=== PATIENT | male | born 1955 | race Caucasian/White ===

== ENCOUNTER 2017-01-22 18:01 | Emergency (ER) | payer OTHER ==
[~2017-01-22] VITALS: Ht 175.3 cm; Wt 90.0 kg
[~2017-01-22 18:01] MED LIST: ACYC400T2 PO; ALLO100T PO; ASPI81TA3 PO; CARV3.1260 PO; CLOP75TA27 PO; CYCL-319 PO; ENAL20TA PO; GABA400C14 PO; GLIP5TAB13 PO; HYDR-3498 PO; LORA5SOL74 PO; METF1000 PO; NIT4 SL; NYST15CR28 TOP; SERT25TA83 PO
[2017-01-22 18:03] VITALS: Ht 175.3 cm; Wt 90.0 kg
[2017-01-22] MEDS ORDERED: LORA10TA3 PO (18:25)
[2017-01-22] MEDS ORDERED: IBUP800T25 PO (18:26)
[2017-01-22] MEDS ORDERED: LANT3I SC (18:27)
[2017-01-22] MEDS ORDERED: LISI10TA2 PO (18:27)
[2017-01-22] MEDS ORDERED: SIMV20TA PO (18:28)
[2017-01-22] MEDS ORDERED: OMEP20CA16 PO (18:28)
[2017-01-22] MEDS ORDERED: FLUT16SP17 NASAL (18:29)
[2017-01-22] MEDS ORDERED: HYDROmorphONE 2 MG/ML SYG IV ONE (18:30)
[2017-01-22] MEDS ORDERED: ONDANSETRON 4 MG INJ IV ONE (18:30)
[2017-01-22] MEDS ORDERED: SILVER SULFADIAZINE 1% 400 GM CR TOP ONE (18:30)
--- NOTE | 2017-01-22 18:59 | RADRPT ---
PROCEDURE: XR Shoulder. CLINICAL INDICATION: Right shoulder pain. TECHNIQUE: 2 views of the right shoulder. COMPARISON: None available FINDINGS: There is no acute fracture or dislocation. The joint spaces are preserved. The coracoclavicular in terval is normal. The visualized right lung is clear. IMPRESSION: 1. No acute fracture or dislocation of the right shoulder. RPTAT: HTAR .Terrence Brown MD, MD Date Time Electronically viewed and signed by .Terrence Brown MD, on 01/22/2017 18:58 .R/
[2017-01-22] MEDS ORDERED: SILVER SULFADIAZINE 1% 25 GM CR TOP SCH (19:30)
[2017-01-22] MEDS ORDERED: HYDROmorphONE 1 MG/ML SYG IV STA (20:41)
[2017-01-22] MEDS ORDERED: ONDANSETRON 4 MG INJ IV STA (20:41)
[2017-01-22] MEDS ORDERED: NICARDipine HCL 30 MG CAPSULE PO ONE (22:00)
[2017-01-22] MEDS ORDERED: hydrALAzine 20 MG INJ IV ONE (22:00)
[2017-01-22] MEDS ORDERED: HYDR-902 PO (22:32)
[2017-01-22] MEDS ORDERED: LISI30TA47 PO (22:32)
[2017-01-22] MEDS ORDERED: SLSL1C50 TOP (22:32)
[2017-01-22] MEDS ORDERED: CEPH-443 PO (22:40)
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
[2017-01-22 23:25] VITALS: BP 174/106; PULSE 89; RESP 17
[2017-01-22] MEDS ORDERED: LIDOCAINE/MYLANTA 40 ML BTL PO ONE (23:30)
== END 2017-01-22 23:25 | disposition home or self-care (01) ==
LOC: E/R 18:01
DX: T20.26XA Burn of second degree of forehead and cheek, initial encounter (principal); T20.24XA Burn of second degree of nose (septum), initial encounter; T23.262A Burn of second degree of back of left hand, initial encounter; T22.212A Burn of second degree of left forearm, initial encounter; T22.211A Burn of second degree of right forearm, initial encounter; I10 Essential (primary) hypertension; X08.8XXA Exposure to other specified smoke, fire and flames, initial encounter; Y92.9 Unspecified place or not applicable; Z79.01 Long term (current) use of anticoagulants; Z79.82 Long term (current) use of aspirin; Z79.84 Long term (current) use of oral hypoglycemic drugs; Z79.4 Long term (current) use of insulin
CPT/HCPCS: 16020; 73030; 96374; 96375; 96376; J0360; J1170; J2405; Z7502; Z7610

== ENCOUNTER 2017-04-25 07:49 | Inpatient (IN) | END 2017-04-29 12:28 | disposition home or self-care (01) | DRG 246 | DX: I21.4 Non-ST elevation (NSTEMI) myocardial infarction (principal); I50.23 Acute on chronic systolic (congestive) heart failure; I11.0 Hypertensive heart disease with heart failure; E11.9 Type 2 diabetes mellitus without complications; E78.5 Hyperlipidemia, unspecified; I25.119 Atherosclerotic heart disease of native coronary artery with unspecified angina pectoris; J44.9 Chronic obstructive pulmonary disease, unspecified; K21.9 Gastro-esophageal reflux disease without esophagitis; Z95.5 Presence of coronary angioplasty implant and graft; Z87.891 Personal history of nicotine dependence; Z79.4 Long term (current) use of insulin ==

== ENCOUNTER 2017-08-28 18:01 | Inpatient (IN) | payer OTHER ==
[~2017-08-28] VITALS: Ht 177.8 cm; Wt 94.0 kg
[~2017-08-28 18:01] MED LIST changes: -ACYC400T2 PO; +ASPI325T4 PO; -ASPI81TA3 PO; -CARV3.1260 PO; -ENAL20TA PO; +FLUT16SP17 NASAL; +FURO20TA3 PO; -HYDR-3498 PO; +LANT3I SC; +LISI20TA11 PO; +LORA10TA3 PO; -LORA5SOL74 PO; +METO-448 PO; -NIT4 SL; +NITR0.4T39 SL; -NYST15CR28 TOP; +OMEP20CA16 PO; +SIMV20TA PO
[2017-08-28] MEDS ORDERED: ASPIRIN 325 MG TAB PO STA (21:40)
[2017-08-28 22:28] LABS: BASOPHILS % 0.7 % (0.0-2.0); EOSINOPHILS # 0.3 10^3/ul (0.0-0.5); HEMATOCRIT 37.2 % (42.0-52.0); HEMOGLOBIN 12.7 g/dl (14.0-18.0); LYMPHOCYTES # 1.5 10^3/ul (0.8-2.9); LYMPHOCYTES % 33.3 % (15.0-51.0); MEAN CORPUSCULAR HEMOGLOBIN 29.5 pg (29.0-33.0); MEAN CORPUSCULAR HGB CONC 34.1 g/dl (32.0-37.0); MEAN CORPUSCULAR VOLUME 86.5 fl (82.0-101.0); MEAN PLATELET VOLUME 9.9 fl (7.4-10.4); MONOCYTE # 0.7 10^3/ul (0.3-0.9); MONOCYTES % 15.3 % (0.0-11.0); NEUTROPHILS % 43.5 % (39.0-77.0); PLATELET COUNT 284 10^3/UL (140-415); WHITE BLOOD COUNT 4.6 10^3/ul (4.8-10.8)
[2017-08-28 22:44] LABS: INR 0.97
[2017-08-28 22:45] LABS: PARTIAL THROMBOPLASTIN TIME 31.8 Sec (25.0-35.0)
[2017-08-28 22:47] LABS: ALBUMIN 3.8 g/dl (3.3-4.9); ALBUMIN/GLOBULIN RATIO 1.18; BILIRUBIN,INDIRECT 0.2 mg/dl (0-1.1); BILIRUBIN,TOTAL 0.2 mg/dl (0.2-1.3); CALCIUM 9.5 mg/dl (8.4-10.2); CREATININE 1.36 mg/dl (0.61-1.24); POTASSIUM 3.9 mmol/L (3.5-5.1)
--- NOTE | 2017-08-28 22:48 | RADRPT ---
PROCEDURE: XR Chest. CLINICAL INDICATION: Chest pain. TECHNIQUE: Single frontal chest x-ray. COMPARISON: 04/25/2017 FINDINGS: Heart is enlarged.. There is mild pulmonary vascular congestion.. No focal infiltrate is seen. The re is a probable small left pleural effusion.. There is no pneumothorax. The osseous structures ar e unremarkable. IMPRESSION: Cardiomegaly. Mild pulmonary vascular congestion. Small left pleural effusion. RPTAT: HMVK .Cruz South MD, MD Date Time Electronically viewed and signed by .Cruz South MD, on 08/28/2017 22:47 .K/
[2017-08-28] MEDS ORDERED: ACYC400T2 PO (22:55)
[2017-08-28] MEDS ORDERED: ASPI-664 PO (22:55)
[2017-08-28] MEDS ORDERED: CARV3.1260 PO (22:57)
[2017-08-28] MEDS ORDERED: ENAL10TA PO (22:57)
[2017-08-28] MEDS ORDERED: CYCL-319 PO (22:58)
[2017-08-28] MEDS ORDERED: IBUP-1542 PO (22:59)
[2017-08-28] MEDS ORDERED: GABA-528 PO (22:59)
[2017-08-28 23:01] LABS: TROPONIN-I 0.074 ng/ml (0.00-0.12)
[2017-08-28 23:02] LABS: CK-MB 3.34 ng/ml (0.0-2.4)
--- NOTE | 2017-08-28 23:49 | ERD ---
ER Documentation Chief Complaint Chief Complaint chest pain and sob x 4 days HPI This is a 62-year-old male with chest pain shortness breath for the past 4 days. The chest pain is mild to moderate intensity, substernal with no exacerbating or alleviating factors. Shortness breath accompanied a day later. No nausea no vomiting no fevers no chills. No diaphoresis. Does complain of orthopnea and dyspnea on exertion. ROS All systems reviewed and are negative except as per history of present illness. Medications Home Meds Active Scripts Clopidogrel Bisulfate (Clopidogrel) 75 Mg Tab, 75 MG PO DAILY for 28 Days, TAB Prov:VENKATA FRAUSTO MD 10/25/15 Reported Medications Ibuprofen* (Ibuprofen*) 600 Mg Tablet, 600 MG PO BID, TAB 08/28/17 Gabapentin* (Gabapentin*) 800 Mg Tablet, 800 MG PO TID, #90 TAB 08/28/17 Enalapril Maleate* (Enalapril Maleate*) 10 Mg Tablet, 10 MG PO DAILY, TAB 08/28/17 Carvedilol* (Carvedilol*) 3.125 Mg Tablet, 3.125 MG PO BID, #60 TAB 08/28/17 Aspirin* (Aspirin* EC) 81 Mg Tablet.dr, 81 MG PO DAILY, TAB 08/28/17 Acyclovir* (Acyclovir*) 400 Mg Tablet, 400 MG PO DAILY, TAB 08/28/17 Cyclobenzaprine Hcl* (Cyclobenzaprine Hcl*) 10 Mg Tablet, 10 MG PO BID Y for MUSCLE SPASMS, #60 TAB 04/25/17 Simvastatin* (Zocor*) 20 Mg Tablet, 20 MG PO QHS, #30 TAB 01/22/17 Loratadine* (Loratadine*) 10 Mg Tablet, 10 MG PO DAILY, #30 TAB 01/22/17 Nitroglycerin* (Nitrostat*) 0.4 Mg Tab.subl, 0.4 MG SL Q5MIN Y for CHEST PAIN, BOTTLE 10/23/15 Metformin Hcl* (Metformin Hcl*) 1,000 Mg Tablet, 1000 MG PO BID, #60 TAB 10/23/15 Glipizide* (Glipizide*) 5 Mg Tablet, 5 MG PO DAILY, TAB 10/23/15 Allopurinol* (Allopurinol*) 100 Mg Tablet, 100 MG PO DAILY, TAB 10/23/15 Discontinued Reported Medications Cyclobenzaprine Hcl* (Cyclobenzaprine Hcl*) 10 Mg Tablet, 10 MG PO TID, #90 TAB 08/28/17 Lisinopril* (Lisinopril*) 20 Mg Tablet, 20 MG PO DAILY, #30 TAB 04/25/17 Fluticasone Propionate* (Fluticasone Propionate* Nasal) 50 Mcg/[place] - 16 Gm [place].susp, 1 SPRAY NASAL BID, #1 BOTTLE TO EACH NOSTRIL 01/22/17 Omeprazole* (Omeprazole*) 20 Mg Capsule.dr, 20 MG PO DAILY, #30 CAP 01/22/17 Insulin Glargine* (Lantus*) 100 Unit/Ml Soln, 20 UNIT SC DAILY, #1 VIAL 01/22/17 Sertraline Hcl* (Sertraline Hcl*) 25 Mg Tablet, 25 MG PO DAILY, #30 TAB 10/23/15 Gabapentin* (Gabapentin*) 400 Mg Capsule, 800 MG PO TID, #180 CAP 10/23/15 Discontinued Scripts Furosemide* (Furosemide*) 20 Mg Tablet, 20 MG PO DAILY for 14 Days, #28 TAB Prov:CONSTANTINO WEST MD 04/29/17 Aspirin* (Aspirin*) 325 Mg Tablet, 325 MG PO DAILY for 30 Days, #30 TAB Prov:CONSTANTINO WEST MD 04/29/17 Metoprolol Tartrate* (Lopressor*) 25 Mg Tab, 25 MG PO BID for 30 Days, #60 TAB Prov:CONSTANTINO WEST MD 04/29/17 Allergies Allergies: Coded Allergies: No Known Allergy (Unverified , 08/28/17) PMhx/Soc History of Surgery: Yes (Stent Placement 2015) Anesthesia Reaction: No Hx Neurological Disorder: No Hx Respiratory Disorders: No Hx Cardiac Disorders: Yes (HTN, Stent Placement 2015) Hx Psychiatric Problems: No Hx Miscellaneous Medical Probl: No Hx Alcohol Use: No Hx Substance Use: No Hx Tobacco Use: No Smoking Status: Never smoker Physical Exam Vitals Vital Signs Date Time Temp Pulse Resp B/P Pulse Ox O2 Delivery O2 Flow Rate FiO2 08/28/17 18:06 97.5 80 18 147/86 97 Physical Exam Const: [] Head: Atraumatic Eyes: Normal Conjunctiva ENT: Normal External Ears, Nose and Mouth. Neck: Full range of motion..~ No meningismus. Resp: Clear to auscultation bilaterally Cardio: Regular rate and rhythm, no murmurs Abd: Soft, non tender, non distended. Normal bowel sounds Skin: No petechiae or rashes Back: No midline or flank tenderness Ext: No cyanosis, or edema Neur: Awake and alert Psych: Normal Mood and Affect Result Diagram: 08/28/17215008/28/172150 Results 24 hrs Laboratory Tests Test 08/28/17 21:51 White Blood Count 4.610^3/ul Red Blood Count 4.3010^6/ul Hemoglobin 12.7g/dl Hematocrit 37.2% Mean Corpuscular Volume 86.5fl Mean Corpuscular Hemoglobin 29.5pg Mean Corpuscular Hemoglobin Concent 34.1g/dl Red Cell Distribution Width 14.0% Platelet Count 46892^3/UL Mean Platelet Volume 9.9fl Neutrophils % 43.5% Lymphocytes % 33.3% Monocytes % 15.3% Eosinophils % 7.0% Basophils % 0.7% Nucleated Red Blood Cells % 0.0/100WBC Neutrophils # 2.010^3/ul Lymphocytes # 1.510^3/ul Monocytes # 0.710^3/ul Eosinophils # 0.310^3/ul Basophils # 0.010^3/ul Nucleated Red Blood Cells # 0.010^3/ul Prothrombin Time 13.0Sec Prothrombin Time Ratio 1.0 INR International Normalized Ratio 0.97 Activated Partial Thromboplast Time 31.8Sec Sodium Level 137mmol/L Potassium Level 3.9mmol/L Chloride Level 101mmol/L Carbon Dioxide Level 27mmol/L Anion Gap 13 Blood Urea Nitrogen 20mg/dl Creatinine 1.36mg/dl Glucose Level 111mg/dl Calcium Level 9.5mg/dl Total Bilirubin 0.2mg/dl Direct Bilirubin 0.00mg/dl Indirect Bilirubin 0.2mg/dl Aspartate Amino Transf (AST/SGOT) 25IU/L Alanine Aminotransferase (ALT/SGPT) 43IU/L Alkaline Phosphatase 79IU/L Creatine Kinase 199IU/L Creatine Kinase Index 1.7 Creatinine Kinase MB (Mass) 3.34ng/ml Troponin I 0.074ng/ml B-Type Natriuretic Peptide 956PG/ML Total Protein 7.0g/dl Albumin 3.8g/dl Globulin 3.20g/dl Albumin/Globulin Ratio 1.18 Current Medications Medications (Trade) Dose Ordered Sig/Kishore Route PRN Reason Start Time Stop Time Status Last Admin Dose Admin Aspirin (Aspirin) 325 mg ONCE STAT PO 08/28/17 21:40 08/28/17 21:42 DC 08/28/17 22:08 Procedures/MDM EKG: Rate/Rhythm: [Normal Sinus Rhythm] QRS, ST, T-waves: [No changes consistent w/ acute ischemia] Impression: [No evidence of ischemia or arrhythmia] Chest X-ray 1V Interpreted by me: Soft Tissue: No acute abnormalities Bones: No acute abnormalities Mediastinum/Cardiac Silhouette/Lungs: Mild pulmonary vascular congestion. Impression: CHF Patient's heart failure symptoms is concerning for acute decompensation and will require inpatient workup and monitoring. Further w/u for ischemia, arrhythmia, PE or dissection will be deferred to the inpatient team. Accepting Care Team: Current data and ongoing care discussed. Time: 2348 Primary Provider: Doctor Marina Consulting: [XOXOXO] Outstanding Data: none Departure Diagnosis: Primary Impression: Chest pain Chest pain type: unspecified Qualified Code: R07.9 - Chest pain, unspecified type Condition: Serious CAROL GARCIA Aug 28, 2017 23:49
[2017-08-29] VITALS (13 sets, daily range): BP systolic 118–157; BP diastolic 76–105; PULSE 70–113; RESP 16–20; TEMP 98.6; Ht 177.8 cm; Wt 94.0 kg
[2017-08-29] MEDS ORDERED: GLUCOSE GEL 15 GRAM TUBE PO PRN ×2 (01:00)
[2017-08-29] MEDS ORDERED: ONDANSETRON 4 MG TAB PO PRN (01:00)
[2017-08-29] MEDS ORDERED: GLUCOSE GEL 15 GRAM TUBE BUCCAL PRN (01:00)
[2017-08-29] MEDS ORDERED: ACETAMINOPHEN 325 MG TAB PO PRN (01:00)
[2017-08-29] MEDS ORDERED: GLUCAGON 1 MG INJ IM PRN (01:00)
[2017-08-29] MEDS ORDERED: DEXTROSE 50% 50 ML SYRINGE IV PRN ×2 (01:00)
[2017-08-29] MEDS ORDERED: NACL 0.9% 3 ML SYG IV SCH (01:00)
[2017-08-29] MEDS ORDERED: NITROGLYCERIN (SL) 0.4 MG TAB SL PRN (01:00)
[2017-08-29] MEDS ORDERED: BISACODYL 10 MG SUPP PR PRN (01:00)
[2017-08-29] MEDS ORDERED: DOCUSATE SODIUM 100 MG CAP PO PRN (01:00)
[2017-08-29] MEDS ORDERED: FUROSEMIDE 40 MG INJ IV ONE (01:00)
[2017-08-29] MEDS: ACCU-CHEK XX SCH (01:57)
[2017-08-29] MEDS: morphine 2 MG INJ IV PRN (04:43)
[2017-08-29 06:25] LABS: TROPONIN-I 0.086 ng/ml (0.00-0.12)
[2017-08-29 06:28] LABS: CK-MB 3.07 ng/ml (0.0-2.4)
[2017-08-29 07:09] LABS: MAGNESIUM 1.7 mg/dl (1.7-2.5); POTASSIUM 3.7 mmol/L (3.5-5.1)
[2017-08-29 07:15] LABS: CALCIUM 9.5 mg/dl (8.4-10.2); CREATININE 1.5 mg/dl (0.61-1.24); POTASSIUM 3.7 mmol/L (3.5-5.1)
[2017-08-29] MEDS: INSULIN ASPART [NOVOLOG] 3 ML PEN SC SCH ×4 (08:15→21:00)
--- NOTE | 2017-08-29 08:40 | HP ---
Date/Time of Note Date/Time of Note DATE: 08/29/17 TIME: 08:30 Assessment/Plan VTE Prophylaxis VTE Prophylaxis Intervention: SCD's Lines/Catheters IV [facility] Urinary Cath still in place: No Assessment/Plan Chief Complaint/Hosp Course This is a 62-year-old male being admitted to the telemetry floor for: #1 chest pain: ACS versus CHF exacerbation: At the current time patient has diuresed approximately 2800 cc. He appears very close to being euvolemic. His lung exam appears to be clear to auscultation. There is no edema observed the lower extremity bilaterally. At the current time will hold off on giving any additional IV Lasix. Will continue 800 cc fluid restriction. Will check I's and O's. Will order an echocardiogram as the most recent one in April showed an ejection fraction of 30-35%. Will consult cardiology. Will resume patient' s home medications. Trend cardiac enzymes. #2 Coronary artery disease: Patient has a history of [place]. We will continue patient's beta-diego/aspirin/Plavix/statin/ARB #3 FILIPPO: likely secondary to fluid overload/AIN. Will diurese and monitor renal function. #4 hyperlipidemia: Check lipid panel. Continue statin #5 hypertension: Resume patient's home medications. #6 diabetes mellitus: Check hemoglobin A1c, insulin sliding scale, hold patient' s home oral medications. #7 DVT GI prophylaxis: SCDs, no GI prophylaxis indicated. Further treatment strategy will be implemented as per the clinical course Problems: HPI/ROS Admit Date/Time Admit Date/Time Aug 28, 2017 at 23:47 Hx of Present Illness Chief complaint: Chest pain, shortness breath This is a 62-year-old male with chest pain shortness breath for the past 4 days. The chest pain is mild to moderate intensity, substernal with no exacerbating or alleviating factors. Shortness breath accompanied a day later. No nausea no vomiting no fevers no chills. No diaphoresis. Does complain of orthopnea and dyspnea on exertion. He also reports swelling in his bilateral lower extremities. 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 Allergies: NKDA Medications: See MAR ROS Const: As per HPI Eyes : No pain discharge or redness or change in visual acuity ENT: No pain, sore throat, congestion, congestion, dysphagia or discharge Respiratory: No shortness of breath, cough, sputum, wheezing, or pleuritic pain Cardiovascular: As per HPI GI : no change in appetite, abdominal pain, nausea, vomiting, diarrhea, constipation, or change in the color his stool Genitourinary: No dysuria, hematuria, flank pain , discharge or CVA tenderness Musculoskeletal: As per HPI Skin: No rash, bruising or hives Neuro: No headache, dizziness, syncope, seizure, focal weakness Endocrine: No polyuria, polydipsia, temperature intolerance Psych: No hallucination, depression, anxiety or suicidal ideation PMH/Family/Social Past Medical History History of [place], gout, hyperlipidemia, hypertension, diabetes mellitus, fibromyalgia Past Surgical History Cardiac stent 4 Family History Significant Family History: diabetes Social History Alcohol Use: none Smoking Status: Never smoker Drug Use: none Exam/Review of Systems Vital Signs Vitals Vital Signs Date Time Temp Pulse Resp B/P Pulse Ox O2 Delivery O2 Flow Rate FiO2 08/29/17 05:42 108 08/29/17 04:20 98.2 20 157/105 98 Room Air Intake and Output 08/28/17 08/28/17 08/29/17 15:00 23:00 07:00 Output Total 2800 ml Balance -2800 ml Exam Exam General: Patient is a pleasant male lying in bed in no acute distress. Upon my examination patient had already diuresed 2800 cc after receiving a dose of Lasix. HEENT: Atraumatic, normocephalic. The pupils are equal, round and reactive. Extraocular motor are intact Neck: Supple with full range of motion. No rigidity or meningismus Chest: Nontender Lungs: Clear to auscultation bilaterally no crackles rales or wheezing Heart: Normal S1-S2, Regular rhythm and rate. No overt murmurs appreciated on auscultation Abdomen: Soft , nontender, nondistended , bowel sounds are present. No guarding no rebound tenderness , No masses or organomegaly. No costovertebral temporal angle mass Extremities: No lower extremity edema, Neurologic: Normal mental status, speech normal, cranial nerves II through XII are intact, motor and sensory are intact, no focal weakness Additional Comments PROCEDURE: XR Chest. CLINICAL INDICATION: Chest pain. TECHNIQUE: Single frontal chest x-ray. COMPARISON: 04/25/2017 FINDINGS: Heart is enlarged.. There is mild pulmonary vascular congestion.. No focal infiltrate is seen. There is a probable small left pleural effusion.. There is no pneumothorax. The osseous structures are unremarkable. IMPRESSION: Cardiomegaly. Mild pulmonary vascular congestion. Small left pleural effusion. RPTAT: HMVK .Cruz South MD, Date Time Electronically viewed and signed by .Cruz South MD, MD on 08/28/2017 22:47 .K/ CC: REGGIE MCRAE Labs Result Diagram: 08/28/17 2151 08/29/17 0639 Medications Medications Current Medications Acyclovir (Zovirax) 400 mg DAILY PO ; Start 08/29/17 at 09:00 Allopurinol (Zyloprim) 100 mg DAILY PO ; Start 08/29/17 at 09:00 Aspirin (Halfprin) 81 mg DAILY PO ; Start 08/29/17 at 09:00 Carvedilol (Coreg) 3.125 mg BID PO ; Start 08/29/17 at 09:00 Clopidogrel Bisulfate (plaVIX) 75 mg DAILY PO ; Start 08/29/17 at 09:00 Enalapril Maleate (Vasotec) 10 mg DAILY PO ; Start 08/29/17 at 09:00 Gabapentin (Neurontin) 800 mg TID PO ; Start 08/29/17 at 09:00 Loratadine (Claritin) 10 mg DAILY PO ; Start 08/29/17 at 09:00 Atorvastatin Calcium (Lipitor) 10 mg QHS PO ; Start 08/29/17 at 21:00 Ondansetron HCl (Zofran Tab) 4 mg Q6H PRN PO NAUSEA AND/OR VOMITING; Start 09/03 at 01:00 Nitroglycerin (Nitroglycerin (Sl Tab) 0.4 Mg) 1 tab Q5M PRN SL CHEST PAIN; Start 08/29/17 at 01:00 Acetaminophen (Tylenol Tab) 650 mg Q6H PRN PO PAIN LEVEL 1-3 OR FEVER; Start 08/29/17 at 01:00 Morphine Sulfate (morphine) 2 mg Q4H PRN IV PAIN LEVEL 7-10 Last administered on 08/29/17 04:43; Admin Dose 2 MG; Start 08/29/17 at 01:00 Docusate Sodium (Colace) 100 mg Q12H PRN PO CONSTIPATION; Start 08/29/17 at 01 :00 Bisacodyl (Dulcolax Supp) 10 mg DAILY PRN LA CONSTIPATION; Start 08/29/17 at 01:00 Diagnostic Test (Pha) (Accu-Chek) 1 ea 02 XX Last administered on 08/29/17 01 :57; Admin Dose 1 EA; Start 08/29/17 at 02:00 Miscellaneous Information 1 ea NOTE XX ; Start 08/29/17 at 01:00 Glucose (Glutose) 15 gm Q15M PRN PO DECREASED GLUCOSE; Start 08/29/17 at 01:00 Glucose (Glutose) 22.5 gm Q15M PRN PO DECREASED GLUCOSE; Start 08/29/17 at 01: 00 Dextrose (D50w Syringe) 25 ml Q15M PRN IV DECREASED GLUCOSE; Start 08/29/17 at 01:00 Dextrose (D50w Syringe) 50 ml Q15M PRN IV DECREASED GLUCOSE; Start 08/29/17 at 01:00 Glucagon (Glucagen) 1 mg Q15M PRN IM DECREASED GLUCOSE; Start 08/29/17 at 01: 00 Glucose (Glutose) 15 gm Q15M PRN BUCCAL DECREASED GLUCOSE; Start 08/29/17 at 01:00 VNIH BRIONES Aug 29, 2017 08:40
--- NOTE | 2017-08-29 10:06 | CONS ---
Date/Time of Note Date/Time of Note DATE: 08/29/17 TIME: 10:05 Assessment/Plan Assessment/Plan Additional Assessment/Plan 62 yo with isch CMY EF 27%, recent JANICE - now with SOB - CHF acute on chronic - diuresing well - will med Rx for now, Feels better. Full note dictated # [id number] Consultation Date/Type/Reason Admit Date/Time Aug 28, 2017 at 23:47 Initial Consult Date Exam/Review of Systems Vital Signs Vitals Vital Signs Date Time Temp Pulse Resp B/P Pulse Ox O2 Delivery O2 Flow Rate FiO2 08/29/17 08:00 88 08/29/17 04:20 98.2 20 157/105 98 Room Air Intake and Output 08/28/17 08/28/17 08/29/17 15:00 23:00 07:00 Output Total 2800 ml Balance -2800 ml Results Result Diagram: 08/28/17 2151 08/29/17 0639 Results 24 hrs Laboratory Tests Test 08/28/17 21:51 08/29/17 01:48 08/29/17 04:35 08/29/17 06:39 White Blood Count 4.6 L Red Blood Count 4.30 L Hemoglobin 12.7 L Hematocrit 37.2 L Mean Corpuscular Volume 86.5 Mean Corpuscular Hemoglobin 29.5 Mean Corpuscular Hemoglobin Concent 34.1 Red Cell Distribution Width 14.0 Platelet Count 284 Mean Platelet Volume 9.9 Neutrophils % 43.5 Lymphocytes % 33.3 Monocytes % 15.3 H Eosinophils % 7.0 Basophils % 0.7 Nucleated Red Blood Cells % 0.0 Neutrophils # 2.0 Lymphocytes # 1.5 Monocytes # 0.7 Eosinophils # 0.3 Basophils # 0.0 Nucleated Red Blood Cells # 0.0 Prothrombin Time 13.0 Prothrombin Time Ratio 1.0 INR International Normalized Ratio 0.97 Activated Partial Thromboplast Time 31.8 Sodium Level 137 137 Potassium Level 3.9 3.7 3.7 Chloride Level 101 100 Carbon Dioxide Level 27 31 Anion Gap 13 10 Blood Urea Nitrogen 20 21 H Creatinine 1.36 H 1.50 H Glucose Level 111 159 Calcium Level 9.5 9.5 Total Bilirubin 0.2 Direct Bilirubin 0.00 Indirect Bilirubin 0.2 Aspartate Amino Transf (AST/SGOT) 25 Alanine Aminotransferase (ALT/SGPT) 43 Alkaline Phosphatase 79 Creatine Kinase 199 168 Creatine Kinase Index 1.7 1.8 Creatinine Kinase MB (Mass) 3.34 H 3.07 H Troponin I 0.074 0.086 B-Type Natriuretic Peptide 956 H Total Protein 7.0 Albumin 3.8 Globulin 3.20 Albumin/Globulin Ratio 1.18 Bedside Glucose 143 Magnesium Level 1.7 Test 08/29/17 08:10 Bedside Glucose 162 Medications Medications Current Medications Acyclovir (Zovirax) 400 mg DAILY PO ; Start 08/29/17 at 09:00 Allopurinol (Zyloprim) 100 mg DAILY PO ; Start 08/29/17 at 09:00 Aspirin (Halfprin) 81 mg DAILY PO ; Start 08/29/17 at 09:00 Carvedilol (Coreg) 3.125 mg BID PO ; Start 08/29/17 at 09:00 Clopidogrel Bisulfate (plaVIX) 75 mg DAILY PO ; Start 08/29/17 at 09:00 Enalapril Maleate (Vasotec) 10 mg DAILY PO ; Start 08/29/17 at 09:00 Gabapentin (Neurontin) 800 mg TID PO ; Start 08/29/17 at 09:00 Loratadine (Claritin) 10 mg DAILY PO ; Start 08/29/17 at 09:00 Atorvastatin Calcium (Lipitor) 10 mg QHS PO ; Start 08/29/17 at 21:00 Ondansetron HCl (Zofran Tab) 4 mg Q6H PRN PO NAUSEA AND/OR VOMITING; Start 09/03 at 01:00 Nitroglycerin (Nitroglycerin (Sl Tab) 0.4 Mg) 1 tab Q5M PRN SL CHEST PAIN; Start 08/29/17 at 01:00 Acetaminophen (Tylenol Tab) 650 mg Q6H PRN PO PAIN LEVEL 1-3 OR FEVER; Start 08/29/17 at 01:00 Morphine Sulfate (morphine) 2 mg Q4H PRN IV PAIN LEVEL 7-10 Last administered on 08/29/17t 04:43; Admin Dose 2 MG; Start 08/29/17 at 01:00 Docusate Sodium (Colace) 100 mg Q12H PRN PO CONSTIPATION; Start 08/29/17 at 01 :00 Bisacodyl (Dulcolax Supp) 10 mg DAILY PRN [place] CONSTIPATION; Start 08/29/17 at 01:00 Diagnostic Test (Pha) (Accu-Chek) 1 ea 02 XX Last administered on 08/29/17t 01 :57; Admin Dose 1 EA; Start 08/29/17 at 02:00 Miscellaneous Information 1 ea NOTE XX ; Start 08/29/17 at 01:00 Glucose (Glutose) 15 gm Q15M PRN PO DECREASED GLUCOSE; Start 08/29/17 at 01:00 Glucose (Glutose) 22.5 gm Q15M PRN PO DECREASED GLUCOSE; Start 08/29/17 at 01: 00 Dextrose (D50w Syringe) 25 ml Q15M PRN IV DECREASED GLUCOSE; Start 08/29/17 at 01:00 Dextrose (D50w Syringe) 50 ml Q15M PRN IV DECREASED GLUCOSE; Start 08/29/17 at 01:00 Glucagon (Glucagen) 1 mg Q15M PRN IM DECREASED GLUCOSE; Start 08/29/17 at 01: 00 Glucose (Glutose) 15 gm Q15M PRN BUCCAL DECREASED GLUCOSE; Start 08/29/17 at 01:00 PATRICIA KELLY MD Aug 29, 2017 10:06
[2017-08-29] MEDS: ENALAPRIL 10 MG TAB PO SCH (10:35)
[2017-08-29] MEDS: LORATADINE 10 MG TAB PO SCH (10:35)
[2017-08-29] MEDS: GABAPENTIN 400 MG CAP PO SCH ×3 (10:36→22:31)
[2017-08-29] MEDS: CLOPIDOGREL 75 MG TAB PO SCH (10:36)
[2017-08-29] MEDS: ACYCLOVIR 400 MG TAB PO SCH (10:36)
[2017-08-29] MEDS: ALLOPURINOL 100 MG TAB PO SCH (10:36)
[2017-08-29] MEDS: ASPIRIN (EC) 81 MG TAB PO SCH (10:40)
[2017-08-29 11:50] LABS: TROPONIN-I 0.071 ng/ml (0.00-0.12)
[2017-08-29 11:51] LABS: CK-MB 2.51 ng/ml (0.0-2.4)
--- NOTE | 2017-08-29 12:12 | CONS ---
DATE OF ADMISSION: 08/28/2017 DATE OF CONSULTATION: 08/29/2017 TYPE OF CONSULTATION: Cardiology REFERRING PHYSICIAN: Dr. Kay. REASON FOR EVALUATION: Chest pain, shortness of breath. HISTORY OF PRESENT ILLNESS: Mr. Watson is a 62-year-old gentleman, patient of Dr. George, with his tory of hypertension, diabetes, history of dyslipidemia, Hodgkin lymphoma, history of recent drug-el uting stenting by Dr. George, and currently in compliance with his medical therapy, who comes to [facility] now for evaluation of shortness of breath and chest pain. The patient did not rule in fo r acute ischemia. He does appear to be with some degree of fluid overload for which he is being diu resed at this particular point. He also has a small left pleural effusion. The patient had a stres s test in April of 2017, which showed ejection fraction of 27% and I believe he does have a fair de gree of ischemic cardiomyopathy now with congestive heart failure exacerbation. For now, conservati ve therapy is expected. We will continue to diurese the patient is indicated and provide more infor mation as more information about his condition becomes available. PAST MEDICAL HISTORY: 1. Hypertension. 2. Dyslipidemia. 3. History of diabetes. 4. History of tobacco use. 5. History of drug-eluting stenting. 6. History of coronary artery disease. 7. History of cardiomyopathy, ischemic, with EF of 20%. ALLERGIES: NO KNOWN DRUG ALLERGIES. SOCIAL HISTORY: The patient has history , does not drink, does not use drugs. FAMILY HISTORY: Negative for sudden cardiac or premature coronary artery disease. MEDICATIONS: Current medications here include: 1. Lipitor 10 mg once a day. 2. Zovirax 400 mg. 3. Aspirin 81 mg p.o. daily. 4. Coreg 3.125 mg b.i.d. 5. Plavix 75 mg p.o. once a day. 6. Gabapentin. 7. Loratadine. 8. Insulin sliding scale. 7. Nitroglycerin. 8. Morphine sulfate. REVIEW OF SYSTEMS: CONSTITUTIONAL: No fevers, no chills, no shortness of breath as described. HEENT: No changes in vision or hearing. CARDIAC: Chest pain reported. RESPIRATORY: Short of breath. GASTROINTESTINAL: No nausea, vomiting, diarrhea, constipation. GENITOURINARY: No dysuria, hematuria. NEUROLOGIC: No focal deficits. HEMATOLOGIC: No easy bruising. PSYCHIATRIC: Possible history of psychiatric illness. PHYSICAL EXAMINATION: VITAL SIGNS: Temperature is 98.7, heart rate is now 88, blood pressure 106/68. GENERAL: He is a well-nourished gentleman in no acute distress, alert and oriented x3, aware of his condition. HEAD: Normocephalic, atraumatic. Eyes anicteric. NECK: Supple. JVD 6 cm. There is no lymphadenopathy. HEART: Regular with soft holosystolic murmur at the apex. PMI displaced leftward. LUNGS: Coarse at the bases. ABDOMEN: Distended, bowel sounds present. There is no hepatosplenomegaly. GENITOURINARY: Exam is intact. EXTREMITIES: No clubbing, cyanosis or edema. LABORATORY DATA: Sodium 137, potassium 3.7, BUN is 21, creatinine 1.5. His INR is 0.7. White bloo d cell count 4.6, hemoglobin 12.7, platelets 284. ASSESSMENT AND PLAN: 1. Congestive heart failure. The patient's heart failure is acute on chronic, secondary to systoli c heart failure with recent drug-eluting stenting. For now, conservative therapy is expected. We w ill continue to optimize the patient's fluid status and follow expectantly. 2. Coronary artery disease. The patient is on good medical therapy. No intervention warranted at this point. Troponins are negative. We will continue the rule out protocol. Continue to keep the patient euvolemic. 3. Hypertension. Blood pressure well optimized. Continue medical therapy. 4. Diabetes. Continue diabetic optimization and care is warranted. 5. Abnormal EKG. As noted above, no specific ST-T changes, PVCs. Continue to follow. I would like to thank Dr. George for referring this patient for my evaluation. Dictated By: PATRICIA KELLY MD ML/NTS Conf#: [id number] DID#: [id number] CC: CYDNEY GEORGE MD; REJI KAY MD; VINH BRIONES MD;*EndCC*
[2017-08-29] MEDS: FUROSEMIDE 40 MG INJ IV SCH ×2 (13:00→17:26)
[2017-08-29 13:54] LABS: CALCIUM 9.9 mg/dl (8.4-10.2); CREATININE 1.4 mg/dl (0.61-1.24); MAGNESIUM 1.7 mg/dl (1.7-2.5); POTASSIUM 3.9 mmol/L (3.5-5.1)
--- NOTE | 2017-08-29 17:42 | RADRPT ---
Echocardiogram Report Patient Name: FRAN FOFANA Gender: Male Date: 1955 Study Date: 29-Aug-2017 Program Advocate: Roro Rodriguez [facility] Location: 3305 Ref. Physician: VINH BRIONES Quality: Adequate Procedures: Transthoracic echocardiogram with complete 2D, M-Mode, and doppler examination. Indications: Chest Pain. 2D/M Mode Doppler Measurement Value Normal Ranges Measurement Value Normal Ranges LVIDd 2D 5.9 3.5 - 5.6 cm AV Peak Amos 1.4 m/sec LVIDs 2D 4.9 2.1 - 4.1 cm AV Peak PG 7.4 mmHg LVPWd 2D 0.9 0.6 - 1.1 cm LVOT Peak Amos 1.1 m/sec IVSd 2D 1.0 0.6 - 1.1 cm LVOT Peak PG 4.9 mmHg AoR Diam 2D 3.0 2.0 - 3.7 cm MV E Peak Amos 1.2 m/sec EDV 2D 172.3 cm3 MV A Peak Amos 0.5 m/sec ESV 2D 116.5 cm3 MV E/A 2.2 LA Dimen 2D 4.9 2.3 - 4.0 cm MV Decel Time 185 msec MV Decel Harvey 6 MV E/A 2.2 TR Peak Amos 2.3 m/sec TR Peak PG 20.7 mmHg RVSP 24.0 mmHg Findings Left Ventricle: Normal left ventricular cavity size. Normal left ventricular wall thickness. Mild global left ventricular systolic dysfunction. Ejection fraction is visually estimated at 30 %. These segments of the LV are hypokinetic inferior base segment and inferior mid segment. Right Ventricle: Normal right ventricular size. Normal right ventricular systolic function. Left Atrium: There is moderate enlargement of left atrium. Right Atrium: The right atrium is normal in size. Mitral Valve: Mitral valve leaflets appear mildly thickened. Mild mitral annular calcification. Mild mitral valve regurgitation. Aortic Valve: No significant aortic stenosis or insufficiency. Aortic cusps appear mildly calcified. Tricuspid Valve: Normal appearance of the tricuspid valve. Estimated peak PA systolic pressure 24 mmHg. There is trace tricuspid regurgitation. Pulmonic Valve: Normal pulmonic valve appearance. There is trace pulmonic regurgitation. Pericardium: Trivial pericardial effusion. Aorta: Normal aortic root. IVC: Normal size and normal respiratory collapse consistent with normal right atrial pressure. Conclusions Normal left ventricular cavity size. Normal left ventricular wall thickness. Mild global left ventricular systolic dysfunction. Ejection fraction is visually estimated at 30 %. These segments of the LV are hypokinetic inferior base segment and inferior mid segment. Mitral valve leaflets appear mildly thickened. Mild mitral annular calcification. Mild mitral valve regurgitation. No significant aortic stenosis or insufficiency. Aortic cusps appear mildly calcified. Normal appearance of the tricuspid valve. Estimated peak PA systolic pressure 24 mmHg. There is trace tricuspid regurgitation. Electronically Signed By: Floyd Johnson 29-Aug-2017 17:41:29 -0800 Patient Name: FRAN FOFANA Study Date: 29-Aug-[id number]
[2017-08-29 18:36] LABS: CALCIUM 10.2 mg/dl (8.4-10.2); CREATININE 1.36 mg/dl (0.61-1.24)
[2017-08-29] MEDS: ATORVASTATIN 10 MG TAB PO SCH (22:30)
[2017-08-30] VITALS (11 sets, daily range): BP systolic 130–177; BP diastolic 68–90; PULSE 64–92; RESP 12–20
[2017-08-30] MEDS: ACCU-CHEK XX SCH (02:00)
[2017-08-30] MEDS: FUROSEMIDE 40 MG INJ IV SCH ×2 (05:14→17:39)
[2017-08-30 07:05] LABS: BASOPHILS % 0.9 % (0.0-2.0); EOSINOPHILS # 0.3 10^3/ul (0.0-0.5); EOSINOPHILS % 7.3 % (0.0-7.0); HEMATOCRIT 39.7 % (42.0-52.0); HEMOGLOBIN 13.6 g/dl (14.0-18.0); LYMPHOCYTES # 1.2 10^3/ul (0.8-2.9); MEAN CORPUSCULAR HEMOGLOBIN 29.6 pg (29.0-33.0); MEAN CORPUSCULAR HGB CONC 34.3 g/dl (32.0-37.0); MEAN CORPUSCULAR VOLUME 86.3 fl (82.0-101.0); MEAN PLATELET VOLUME 9.8 fl (7.4-10.4); MONOCYTE # 0.7 10^3/ul (0.3-0.9); MONOCYTES % 15.6 % (0.0-11.0); NEUTROPHIL # 2.2 10^3/ul (1.6-7.5); PLATELET COUNT 297 10^3/UL (140-415); RED CELL DISTRIBUTION WIDTH 14.2 % (11.5-14.5); WHITE BLOOD COUNT 4.4 10^3/ul (4.8-10.8)
[2017-08-30 07:27] LABS: ALBUMIN 3.7 g/dl (3.3-4.9); ALBUMIN/GLOBULIN RATIO 1.19; BILIRUBIN,INDIRECT 0.1 mg/dl (0-1.1); BILIRUBIN,TOTAL 0.1 mg/dl (0.2-1.3); CALCIUM 9.5 mg/dl (8.4-10.2); CHOL/HDL RATIO 4.8 RATIO; CREATININE 1.29 mg/dl (0.61-1.24); MAGNESIUM 1.7 mg/dl (1.7-2.5); TOTAL PROTEIN 6.8 g/dl (6.1-8.1)
[2017-08-30] MEDS: INSULIN ASPART [NOVOLOG] 3 ML PEN SC SCH ×4 (08:13→20:58)
[2017-08-30 08:16] LABS: THYROID STIMULATING HORMONE 1.71 MIU/L (0.465-4.680)
[2017-08-30] MEDS: ASPIRIN (EC) 81 MG TAB PO SCH (08:21)
[2017-08-30] MEDS: LORATADINE 10 MG TAB PO SCH (08:21)
[2017-08-30] MEDS: GABAPENTIN 400 MG CAP PO SCH ×3 (08:21→20:50)
[2017-08-30] MEDS: CLOPIDOGREL 75 MG TAB PO SCH (10:14)
[2017-08-30] MEDS: ACYCLOVIR 400 MG TAB PO SCH (10:14)
[2017-08-30] MEDS: ENALAPRIL 10 MG TAB PO SCH (10:15)
[2017-08-30] MEDS: ALLOPURINOL 100 MG TAB PO SCH (10:15)
--- NOTE | 2017-08-30 12:31 | CONS ---
Date/Time of Note Date/Time of Note DATE: 08/30/17 TIME: 12:29 Assessment/Plan Assessment/Plan Additional Assessment/Plan 1. Congestive heart failure. The patient's heart failure is acute on chronic, secondary to systolic heart failure with recent drug-eluting stenting. For now , conservative therapy is expected. We will continue to optimize the patient's fluid status and follow expectantly. Better Now. Con't diuresis. 2. Coronary artery disease. The patient is on good medical therapy. No intervention warranted at this point. Troponins are negative. We will continue the rule out protocol. Continue to keep the patient euvolemic. 3. Hypertension. Blood pressure well optimized. Continue medical therapy. BP in better range now. 4. Diabetes. Continue diabetic optimization and care is warranted. On therapy. 5. Abnormal EKG. As noted above, no specific ST-T changes, PVCs. Continue to follow. Consultation Date/Type/Reason Admit Date/Time Aug 28, 2017 at 23:47 24 HR Interval Summary Free Text/Dictation NO acute events - pt improved with diuresis. ROS: No fever, no chills, no nausea, no vomiting, no diarrhea/constipation No recent weight changes No chest pain, no PND, no orthopnea No dizziness, blurred vision No thirst, no heat or cold intolerance Exam/Review of Systems Vital Signs Vitals Vital Signs Date Time Temp Pulse Resp B/P Pulse Ox O2 Delivery O2 Flow Rate FiO2 08/30/17 08:00 80 08/30/17 06:14 97.6 18 130/80 96 Room Air Intake and Output 08/29/17 08/29/17 08/30/17 14:59 22:59 06:59 Intake Total 800 ml 800 ml Output Total 2600 ml 1500 ml Balance -1800 ml -700 ml Exam General: WN/WD/NAD, AOx 3 HEENT: Unicetric/atraumatic/EOMI (follow commands) NECK: JVD elevated, no thyromegaly Lymph: no lymphadenopathy HEART: regular with no S3, II/ systolic murmur at apex LUNGS: Coarse sounds ABD: soft, NT, ND, +BS : Intact Neuro: non focal SKIN: chronic changes EXT: trace edema Results Result Diagram: 08/30/1724 08/30/17 0624 Results 24 hrs Laboratory Tests Test 08/29/17 17:24 08/29/17 18:10 08/29/17 22:36 08/30/17 06:24 Bedside Glucose 169 119 Sodium Level 139 139 Potassium Level 4.0 4.0 Chloride Level 97 101 Carbon Dioxide Level 29 28 Anion Gap 17 H 14 Blood Urea Nitrogen 24 H 27 H Creatinine 1.36 H 1.29 H Glucose Level 162 201 Calcium Level 10.2 9.5 White Blood Count 4.4 L Red Blood Count 4.60 L Hemoglobin 13.6 L Hematocrit 39.7 L Mean Corpuscular Volume 86.3 Mean Corpuscular Hemoglobin 29.6 Mean Corpuscular Hemoglobin Concent 34.3 Red Cell Distribution Width 14.2 Platelet Count 297 Mean Platelet Volume 9.8 Neutrophils % 49.0 Lymphocytes % 27.0 Monocytes % 15.6 H Eosinophils % 7.3 H Basophils % 0.9 Nucleated Red Blood Cells % 0.0 Neutrophils # 2.2 Lymphocytes # 1.2 Monocytes # 0.7 Eosinophils # 0.3 Basophils # 0.0 Nucleated Red Blood Cells # 0.0 Hemoglobin A1c 6.4 H Magnesium Level 1.7 Total Bilirubin 0.1 L Direct Bilirubin 0.00 Indirect Bilirubin 0.1 Aspartate Amino Transf (AST/SGOT) 22 Alanine Aminotransferase (ALT/SGPT) 35 Alkaline Phosphatase 86 Total Protein 6.8 Albumin 3.7 Globulin 3.10 Albumin/Globulin Ratio 1.19 Triglycerides Level 198 H Cholesterol Level 202 H LDL Cholesterol, Calculated 120 HDL Cholesterol 42 Cholesterol/HDL Ratio 4.8 Thyroid Stimulating Hormone (TSH) 1.710 Test 08/30/17 07:55 Bedside Glucose 219 Medications Medications Current Medications Acyclovir (Zovirax) 400 mg DAILY PO Last administered on 08/30/17 10:14; Admin Dose 400 MG; Start 08/29/17 at 09:00 Allopurinol (Zyloprim) 100 mg DAILY PO Last administered on 08/30/17 10:15; Admin Dose 100 MG; Start 08/29/17 at 09:00 Aspirin (Halfprin) 81 mg DAILY PO Last administered on 08/30/17 08:21; Admin Dose 81 MG; Start 08/29/17 at 09:00 Carvedilol (Coreg) 3.125 mg BID PO Last administered on 08/30/17 08:22; Admin Dose 3.125 MG; Start 08/29/17 at 09:00 Clopidogrel Bisulfate (plaVIX) 75 mg DAILY PO Last administered on 08/30/17 10:14; Admin Dose 75 MG; Start 08/29/17 at 09:00 Enalapril Maleate (Vasotec) 10 mg DAILY PO Last administered on 08/30/17 10: 15; Admin Dose 10 MG; Start 08/29/17 at 09:00 Gabapentin (Neurontin) 800 mg TID PO Last administered on 08/30/17 08:21; Admin Dose 800 MG; Start 08/29/17 at 09:00 Loratadine (Claritin) 10 mg DAILY PO Last administered on 08/30/17 08:21; Admin Dose 10 MG; Start 08/29/17 at 09:00 Atorvastatin Calcium (Lipitor) 10 mg QHS PO Last administered on 08/29/17 22: 30; Admin Dose 10 MG; Start 08/29/17 at 21:00 Ondansetron HCl (Zofran Tab) 4 mg Q6H PRN PO NAUSEA AND/OR VOMITING; Start 09/03 at 01:00 Nitroglycerin (Nitroglycerin (Sl Tab) 0.4 Mg) 1 tab Q5M PRN SL CHEST PAIN; Start 08/29/17 at 01:00 Acetaminophen (Tylenol Tab) 650 mg Q6H PRN PO PAIN LEVEL 1-3 OR FEVER; Start 08/29/17 at 01:00 Morphine Sulfate (morphine) 2 mg Q4H PRN IV PAIN LEVEL 7-10 Last administered on 08/29/17 04:43; Admin Dose 2 MG; Start 08/29/17 at 01:00 Docusate Sodium (Colace) 100 mg Q12H PRN PO CONSTIPATION; Start 08/29/17 at 01 :00 Bisacodyl (Dulcolax Supp) 10 mg DAILY PRN [place] CONSTIPATION; Start 08/29/17 at 01:00 Diagnostic Test (Pha) (Accu-Chek) 1 ea 02 XX Last administered on 08/29/17 01 :57; Admin Dose 1 EA; Start 08/29/17 at 02:00 Miscellaneous Information 1 ea NOTE XX ; Start 08/29/17 at 01:00 Glucose (Glutose) 15 gm Q15M PRN PO DECREASED GLUCOSE; Start 08/29/17 at 01:00 Glucose (Glutose) 22.5 gm Q15M PRN PO DECREASED GLUCOSE; Start 08/29/17 at 01: 00 Dextrose (D50w Syringe) 25 ml Q15M PRN IV DECREASED GLUCOSE; Start 08/29/17 at 01:00 Dextrose (D50w Syringe) 50 ml Q15M PRN IV DECREASED GLUCOSE; Start 08/29/17 at 01:00 Glucagon (Glucagen) 1 mg Q15M PRN IM DECREASED GLUCOSE; Start 08/29/17 at 01: 00 Glucose (Glutose) 15 gm Q15M PRN BUCCAL DECREASED GLUCOSE; Start 08/29/17 at 01:00 PATRICIA KELLY MD Aug 30, 2017 12:31
--- NOTE | 2017-08-30 17:00 | PN ---
Date/Time of Note Date/Time of Note DATE: 08/30/17 TIME: 16:57 Assessment/Plan VTE Prophylaxis VTE Prophylaxis Intervention: LMWH Lines/Catheters IV [facility] Saline Lock Urinary Cath still in place: No Assessment/Plan Chief Complaint/Hosp Course 62 yo male [facility] chronic systolic CHF presenting [facility] acute systolic CHF exacerbation CHF: - Continue diuresis to euvelomia, likely convert to PO tomorrow - Coreg 3.125 and enalapril 10 CKD II:- Stable DMII: - Continue basal/bolus insulin Discharge in coming 1-2 days when euvolemic Problems: Subjective 24 Hr Interval Summary Free Text/Dictation Diuresing well TTE shows EF 30% Exam/Review of Systems Vital Signs Vitals Vital Signs Date Time Temp Pulse Resp B/P Pulse Ox O2 Delivery O2 Flow Rate FiO2 08/30/17 16:00 76 08/30/17 06:14 97.6 18 130/80 96 Room Air Intake and Output 08/29/17 08/29/17 08/30/17 15:00 23:00 07:00 Intake Total 800 ml 800 ml Output Total 2600 ml 1500 ml Balance -1800 ml -700 ml Results Result Diagram: 08/30/17 0624 08/30/17 0624 Results 24 hrs Laboratory Tests Test 08/29/17 17:24 08/29/17 18:10 08/29/17 22:36 08/30/17 06:24 Bedside Glucose 169 119 Sodium Level 139 139 Potassium Level 4.0 4.0 Chloride Level 97 101 Carbon Dioxide Level 29 28 Anion Gap 17 H 14 Blood Urea Nitrogen 24 H 27 H Creatinine 1.36 H 1.29 H Glucose Level 162 201 Calcium Level 10.2 9.5 White Blood Count 4.4 L Red Blood Count 4.60 L Hemoglobin 13.6 L Hematocrit 39.7 L Mean Corpuscular Volume 86.3 Mean Corpuscular Hemoglobin 29.6 Mean Corpuscular Hemoglobin Concent 34.3 Red Cell Distribution Width 14.2 Platelet Count 297 Mean Platelet Volume 9.8 Neutrophils % 49.0 Lymphocytes % 27.0 Monocytes % 15.6 H Eosinophils % 7.3 H Basophils % 0.9 Nucleated Red Blood Cells % 0.0 Neutrophils # 2.2 Lymphocytes # 1.2 Monocytes # 0.7 Eosinophils # 0.3 Basophils # 0.0 Nucleated Red Blood Cells # 0.0 Hemoglobin A1c 6.4 H Magnesium Level 1.7 Total Bilirubin 0.1 L Direct Bilirubin 0.00 Indirect Bilirubin 0.1 Aspartate Amino Transf (AST/SGOT) 22 Alanine Aminotransferase (ALT/SGPT) 35 Alkaline Phosphatase 86 Total Protein 6.8 Albumin 3.7 Globulin 3.10 Albumin/Globulin Ratio 1.19 Triglycerides Level 198 H Cholesterol Level 202 H LDL Cholesterol, Calculated 120 HDL Cholesterol 42 Cholesterol/HDL Ratio 4.8 Thyroid Stimulating Hormone (TSH) 1.710 Test 08/30/17 07:55 08/30/17 12:37 Bedside Glucose 219 155 Medications Medications Current Medications Acyclovir (Zovirax) 400 mg DAILY PO Last administered on 08/30/17 10:14; Admin Dose 400 MG; Start 08/29/17 at 09:00 Allopurinol (Zyloprim) 100 mg DAILY PO Last administered on 08/30/17 10:15; Admin Dose 100 MG; Start 08/29/17 at 09:00 Aspirin (Halfprin) 81 mg DAILY PO Last administered on 08/30/17 08:21; Admin Dose 81 MG; Start 08/29/17 at 09:00 Carvedilol (Coreg) 3.125 mg BID PO Last administered on 08/30/17 08:22; Admin Dose 3.125 MG; Start 08/29/17 at 09:00 Clopidogrel Bisulfate (plaVIX) 75 mg DAILY PO Last administered on 08/30/17 10:14; Admin Dose 75 MG; Start 08/29/17 at 09:00 Enalapril Maleate (Vasotec) 10 mg DAILY PO Last administered on 08/30/17 10: 15; Admin Dose 10 MG; Start 08/29/17 at 09:00 Gabapentin (Neurontin) 800 mg TID PO Last administered on 08/30/17 13:25; Admin Dose 800 MG; Start 08/29/17 at 09:00 Loratadine (Claritin) 10 mg DAILY PO Last administered on 08/30/17 08:21; Admin Dose 10 MG; Start 08/29/17 at 09:00 Atorvastatin Calcium (Lipitor) 10 mg QHS PO Last administered on 08/29/17 22: 30; Admin Dose 10 MG; Start 08/29/17 at 21:00 Ondansetron HCl (Zofran Tab) 4 mg Q6H PRN PO NAUSEA AND/OR VOMITING; Start 09/03 at 01:00 Nitroglycerin (Nitroglycerin (Sl Tab) 0.4 Mg) 1 tab Q5M PRN SL CHEST PAIN; Start 08/29/17 at 01:00 Acetaminophen (Tylenol Tab) 650 mg Q6H PRN PO PAIN LEVEL 1-3 OR FEVER; Start 08/29/17 at 01:00 Morphine Sulfate (morphine) 2 mg Q4H PRN IV PAIN LEVEL 7-10 Last administered on 08/29/17 04:43; Admin Dose 2 MG; Start 08/29/17 at 01:00 Docusate Sodium (Colace) 100 mg Q12H PRN PO CONSTIPATION; Start 08/29/17 at 01 :00 Bisacodyl (Dulcolax Supp) 10 mg DAILY PRN [place] CONSTIPATION; Start 08/29/17 at 01:00 Diagnostic Test (Pha) (Accu-Chek) 1 ea 02 XX Last administered on 08/29/17 01 :57; Admin Dose 1 EA; Start 08/29/17 at 02:00 Miscellaneous Information 1 ea NOTE XX ; Start 08/29/17 at 01:00 Glucose (Glutose) 15 gm Q15M PRN PO DECREASED GLUCOSE; Start 08/29/17 at 01:00 Glucose (Glutose) 22.5 gm Q15M PRN PO DECREASED GLUCOSE; Start 08/29/17 at 01: 00 Dextrose (D50w Syringe) 25 ml Q15M PRN IV DECREASED GLUCOSE; Start 08/29/17 at 01:00 Dextrose (D50w Syringe) 50 ml Q15M PRN IV DECREASED GLUCOSE; Start 08/29/17 at 01:00 Glucagon (Glucagen) 1 mg Q15M PRN IM DECREASED GLUCOSE; Start 08/29/17 at 01: 00 Glucose (Glutose) 15 gm Q15M PRN BUCCAL DECREASED GLUCOSE; Start 08/29/17 at 01:00 FRAN TOLLIVER MD Aug 30, 2017 17:00
[2017-08-30] MEDS: ATORVASTATIN 10 MG TAB PO SCH (20:50)
[2017-08-31] VITALS (12 sets, daily range): BP systolic 114–136; BP diastolic 58–89; PULSE 72–87; RESP 16–17
[2017-08-31] MEDS: ACCU-CHEK XX SCH (02:00)
[2017-08-31] MEDS: FUROSEMIDE 40 MG INJ IV SCH ×2 (06:03→18:03)
[2017-08-31] MEDS: CLOPIDOGREL 75 MG TAB PO SCH (08:56)
[2017-08-31] MEDS: GABAPENTIN 400 MG CAP PO SCH ×3 (08:57→21:47)
[2017-08-31] MEDS: ASPIRIN (EC) 81 MG TAB PO SCH (08:57)
[2017-08-31] MEDS: ACYCLOVIR 400 MG TAB PO SCH (08:57)
[2017-08-31] MEDS: LORATADINE 10 MG TAB PO SCH (08:57)
[2017-08-31] MEDS: ALLOPURINOL 100 MG TAB PO SCH (08:57)
[2017-08-31] MEDS: ENALAPRIL 10 MG TAB PO SCH (08:58)
[2017-08-31] MEDS: INSULIN ASPART [NOVOLOG] 3 ML PEN SC SCH ×4 (09:04→21:54)
--- NOTE | 2017-08-31 10:06 | CONS ---
Date/Time of Note Date/Time of Note DATE: 08/31/17 TIME: 10:05 Assessment/Plan Assessment/Plan Additional Assessment/Plan 1. Congestive heart failure. The patient's heart failure is acute on chronic, secondary to systolic heart failure with recent drug-eluting stenting. For now , conservative therapy is expected. We will continue to optimize the patient's fluid status and follow expectantly. Better Now. Con't diuresis. BETTER NOW - DISPO to plan. 2. Coronary artery disease. The patient is on good medical therapy. No intervention warranted at this point. Troponins are negative. We will continue the rule out protocol. Continue to keep the patient euvolemic. 3. Hypertension. Blood pressure well optimized. Continue medical therapy. BP in better range now. 4. Diabetes. Continue diabetic optimization and care is warranted. On therapy. 5. Abnormal EKG. As noted above, no specific ST-T changes, PVCs. Continue to follow. Consultation Date/Type/Reason Admit Date/Time Aug 28, 2017 at 23:47 24 HR Interval Summary Free Text/Dictation NO acute events - much better fluid status now - dispo planning. ROS: No fever, no chills, no nausea, no vomiting, no diarrhea/constipation No recent weight changes No chest pain, no PND, no orthopnea BETTER SOB No dizziness, blurred vision No thirst, no heat or cold intolerance Exam/Review of Systems Vital Signs Vitals Vital Signs Date Time Temp Pulse Resp B/P Pulse Ox O2 Delivery O2 Flow Rate FiO2 08/31/17 08:34 97.9 74 17 136/83 97 08/30/17 19:53 Room Air Intake and Output 08/30/17 08/30/17 08/31/17 15:00 23:00 07:00 Intake Total 850 ml Output Total 3500 ml Balance -2650 ml Exam General: WN/WD/NAD, AOx 3 HEENT: Unicetric/atraumatic/EOMI (follows commands) NECK: JVD elevated, no thyromegaly Lymph: no lymphadenopathy HEART: regular with no S3, II/ systolic murmur at apex, PMI L LUNGS: Coarse sounds ABD: soft, NT, ND, +BS : Intact Neuro: non focal SKIN: chronic changes EXT: trace edema Results Result Diagram: 08/30/1762308/30/17623 Results 24 hrs Laboratory Tests Test 12/13/17 12:37 08/30/17 17:29 08/30/17 20:53 08/31/17 02:27 Bedside Glucose 155 123 198 190 Medications Medications Current Medications Acyclovir (Zovirax) 400 mg DAILY PO Last administered on 08/31/17 08:57; Admin Dose 400 MG; Start 08/29/17 at 09:00 Allopurinol (Zyloprim) 100 mg DAILY PO Last administered on 08/31/17 08:57; Admin Dose 100 MG; Start 08/29/17 at 09:00 Aspirin (Halfprin) 81 mg DAILY PO Last administered on 08/31/17 08:57; Admin Dose 81 MG; Start 08/29/17 at 09:00 Carvedilol (Coreg) 3.125 mg BID PO Last administered on 08/31/17 08:57; Admin Dose 3.125 MG; Start 08/29/17 at 09:00 Clopidogrel Bisulfate (plaVIX) 75 mg DAILY PO Last administered on 08/31/17 08:56; Admin Dose 75 MG; Start 08/29/17 at 09:00 Enalapril Maleate (Vasotec) 10 mg DAILY PO Last administered on 08/31/17 08: 58; Admin Dose 10 MG; Start 08/29/17 at 09:00 Gabapentin (Neurontin) 800 mg TID PO Last administered on 08/31/17 08:57; Admin Dose 800 MG; Start 08/29/17 at 09:00 Loratadine (Claritin) 10 mg DAILY PO Last administered on 08/31/17 08:57; Admin Dose 10 MG; Start 08/29/17 at 09:00 Atorvastatin Calcium (Lipitor) 10 mg QHS PO Last administered on 08/30/17 20: 50; Admin Dose 10 MG; Start 08/29/17 at 21:00 Ondansetron HCl (Zofran Tab) 4 mg Q6H PRN PO NAUSEA AND/OR VOMITING; Start 09/03 at 01:00 Nitroglycerin (Nitroglycerin (Sl Tab) 0.4 Mg) 1 tab Q5M PRN SL CHEST PAIN; Start 08/29/17 at 01:00 Acetaminophen (Tylenol Tab) 650 mg Q6H PRN PO PAIN LEVEL 1-3 OR FEVER; Start 08/29/17 at 01:00 Morphine Sulfate (morphine) 2 mg Q4H PRN IV PAIN LEVEL 7-10 Last administered on 08/29/17 04:43; Admin Dose 2 MG; Start 08/29/17 at 01:00 Docusate Sodium (Colace) 100 mg Q12H PRN PO CONSTIPATION; Start 08/29/17 at 01 :00 Bisacodyl (Dulcolax Supp) [address] CONSTIPATION; Start 08/29/17 at 01:00 Diagnostic Test (Pha) (Accu-Chek) 1 ea 02 XX Last administered on 08/31/17 02 :00; Admin Dose 1 EA; Start 08/29/17 at 02:00 Miscellaneous Information 1 ea NOTE XX ; Start 08/29/17 at 01:00 Glucose (Glutose) 15 gm Q15M PRN PO DECREASED GLUCOSE; Start 08/29/17 at 01:00 Glucose (Glutose) 22.5 gm Q15M PRN PO DECREASED GLUCOSE; Start 08/29/17 at 01: 00 Dextrose (D50w Syringe) 25 ml Q15M PRN IV DECREASED GLUCOSE; Start 08/29/17 at 01:00 Dextrose (D50w Syringe) 50 ml Q15M PRN IV DECREASED GLUCOSE; Start 08/29/17 at 01:00 Glucagon (Glucagen) 1 mg Q15M PRN IM DECREASED GLUCOSE; Start 08/29/17 at 01: 00 Glucose (Glutose) 15 gm Q15M PRN BUCCAL DECREASED GLUCOSE; Start 08/29/17 at 01:00 PATRICIA KELLY MD Aug 31, 2017 10:06
[2017-08-31] MEDS: morphine 2 MG INJ IV PRN (12:06)
[2017-08-31 12:50] LABS: BASOPHIL # 0.1 10^3/ul (0.0-0.1); EOSINOPHILS # 0.3 10^3/ul (0.0-0.5); EOSINOPHILS % 5.9 % (0.0-7.0); HEMATOCRIT 43.3 % (42.0-52.0); HEMOGLOBIN 14.5 g/dl (14.0-18.0); LYMPHOCYTES # 1.4 10^3/ul (0.8-2.9); LYMPHOCYTES % 27.8 % (15.0-51.0); MEAN CORPUSCULAR HEMOGLOBIN 28.9 pg (29.0-33.0); MEAN CORPUSCULAR HGB CONC 33.5 g/dl (32.0-37.0); MEAN CORPUSCULAR VOLUME 86.3 fl (82.0-101.0); MEAN PLATELET VOLUME 9.7 fl (7.4-10.4); MONOCYTE # 0.8 10^3/ul (0.3-0.9); MONOCYTES % 16.7 % (0.0-11.0); NEUTROPHIL # 2.4 10^3/ul (1.6-7.5); PLATELET COUNT 310 10^3/UL (140-415); RED BLOOD COUNT 5.02 10^6/ul (4.70-6.10); RED CELL DISTRIBUTION WIDTH 13.5 % (11.5-14.5); WHITE BLOOD COUNT 4.9 10^3/ul (4.8-10.8)
[2017-08-31 13:09] LABS: ALBUMIN/GLOBULIN RATIO 1.17; BILIRUBIN,INDIRECT 0.3 mg/dl (0-1.1); BILIRUBIN,TOTAL 0.3 mg/dl (0.2-1.3); CALCIUM 9.8 mg/dl (8.4-10.2); CREATININE 1.27 mg/dl (0.61-1.24); POTASSIUM 4.2 mmol/L (3.5-5.1); TOTAL PROTEIN 7.4 g/dl (6.1-8.1)
[2017-08-31 14:31] LABS: BILIRUBIN,INDIRECT 0.2 mg/dl (0-1.1); BILIRUBIN,TOTAL 0.2 mg/dl (0.2-1.3); MAGNESIUM 1.7 mg/dl (1.7-2.5); TOTAL PROTEIN 7.3 g/dl (6.1-8.1)
--- NOTE | 2017-08-31 15:36 | PN ---
Date/Time of Note Date/Time of Note DATE: 08/31/17 TIME: 15:35 Assessment/Plan VTE Prophylaxis VTE Prophylaxis Intervention: LMWH Lines/Catheters [facility] Urinary Cath still in place: No Assessment/Plan Chief Complaint/Hosp Course 62 yo male [facility] chronic systolic CHF presenting [facility] acute systolic CHF exacerbation CHF: - Continue diuresis, convert to PO tomorrow at discharge - Coreg 3.125 and enalapril 10 CKD II:- Stable DMII: - Continue basal/bolus insulin Discharge tomorrow Problems: Subjective 24 Hr Interval Summary Free Text/Dictation Feeling well, no comlaints Offered discharge, requests one more day in hospital Exam/Review of Systems Vital Signs Vitals Vital Signs Date Time Temp Pulse Resp B/P Pulse Ox O2 Delivery O2 Flow Rate FiO2 08/31/17 15:22 97.9 74 17 122/72 94 08/30/17 19:53 Room Air Intake and Output 08/30/17 08/30/17 08/31/17 14:59 22:59 06:59 Intake Total 850 ml Output Total 3500 ml Balance -2650 ml Exam Constitutional: alert, oriented, well developed Psych: nl mood/affect, no complaints Head: atraumatic, normocephalic Eyes: EOMI, PERRL, nl conjunctiva, nl lids, nl sclera ENMT: nl external ears & nose, nl lips & teeth, nl nasal mucosa & septum Neck: non-tender, supple Respiratory: clear to auscultation, normal air movement Cardiovascular: nl pulses, regular rate and rhythm Gastrointestinal: nl liver, spleen, non-tender, soft Musculoskeletal: nl extremities to inspection, nl gait and stance Extremities: normal pulses Neurological: MOTOR [employer] II-XII intact, nl mental status, nl speech, nl strength Skin: nl turgor, No rash or lesions Lymph: nl lymph nodes Results Result Diagram: 08/31/17 1224 08/31/17 1236 Results 24 hrs Laboratory Tests Test 08/30/17 17:29 08/30/17 20:53 08/31/17 02:27 08/31/17 08:29 Bedside Glucose 123 198 190 190 Test 08/31/17 12:10 08/31/17 12:24 08/31/17 12:36 Bedside Glucose 141 White Blood Count 4.9 Red Blood Count 5.02 Hemoglobin 14.5 Hematocrit 43.3 Mean Corpuscular Volume 86.3 Mean Corpuscular Hemoglobin 28.9 L Mean Corpuscular Hemoglobin Concent 33.5 Red Cell Distribution Width 13.5 Platelet Count 310 Mean Platelet Volume 9.7 Neutrophils % 48.0 Lymphocytes % 27.8 Monocytes % 16.7 H Eosinophils % 5.9 Basophils % 1.0 Nucleated Red Blood Cells % 0.0 Neutrophils # 2.4 Lymphocytes # 1.4 Monocytes # 0.8 Eosinophils # 0.3 Basophils # 0.1 Nucleated Red Blood Cells # 0.0 Sodium Level 136 Potassium Level 4.2 Chloride Level 97 Carbon Dioxide Level 28 Anion Gap 15 Blood Urea Nitrogen 25 H Creatinine 1.27 H Glucose Level 147 # Calcium Level 9.8 Magnesium Level 1.7 Total Bilirubin 0.2 Direct Bilirubin 0.00 Indirect Bilirubin 0.2 Aspartate Amino Transf (AST/SGOT) 24 Alanine Aminotransferase (ALT/SGPT) 35 Alkaline Phosphatase 79 Total Protein 7.3 Albumin 4.0 Globulin 3.40 H Albumin/Globulin Ratio 1.17 Medications Medications Current Medications Acyclovir (Zovirax) 400 mg DAILY PO Last administered on 08/31/17 08:57; Admin Dose 400 MG; Start 08/29/17 at 09:00 Allopurinol (Zyloprim) 100 mg DAILY PO Last administered on 08/31/17 08:57; Admin Dose 100 MG; Start 08/29/17 at 09:00 Aspirin (Halfprin) 81 mg DAILY PO Last administered on 08/31/17 08:57; Admin Dose 81 MG; Start 08/29/17 at 09:00 Carvedilol (Coreg) 3.125 mg BID PO Last administered on 08/31/17 08:57; Admin Dose 3.125 MG; Start 08/29/17 at 09:00 Clopidogrel Bisulfate (plaVIX) 75 mg DAILY PO Last administered on 08/31/17 08:56; Admin Dose 75 MG; Start 08/29/17 at 09:00 Enalapril Maleate (Vasotec) 10 mg DAILY PO Last administered on 08/31/17 08: 58; Admin Dose 10 MG; Start 08/29/17 at 09:00 Gabapentin (Neurontin) 800 mg TID PO Last administered on 08/31/17 12:10; Admin Dose 800 MG; Start 08/29/17 at 09:00 Loratadine (Claritin) 10 mg DAILY PO Last administered on 08/31/17 08:57; Admin Dose 10 MG; Start 08/29/17 at 09:00 Atorvastatin Calcium (Lipitor) 10 mg QHS PO Last administered on 08/30/17 20: 50; Admin Dose 10 MG; Start 08/29/17 at 21:00 Ondansetron HCl (Zofran Tab) 4 mg Q6H PRN PO NAUSEA AND/OR VOMITING; Start 09/03 at 01:00 Nitroglycerin (Nitroglycerin (Sl Tab) 0.4 Mg) 1 tab Q5M PRN SL CHEST PAIN; Start 08/29/17 at 01:00 Acetaminophen (Tylenol Tab) 650 mg Q6H PRN PO PAIN LEVEL 1-3 OR FEVER; Start 08/29/17 at 01:00 Morphine Sulfate (morphine) 2 mg Q4H PRN IV PAIN LEVEL 7-10 Last administered on 08/31/17 12:06; Admin Dose 2 MG; Start 08/29/17 at 01:00 Docusate Sodium (Colace) 100 mg Q12H PRN PO CONSTIPATION; Start 08/29/17 at 01 :00 Bisacodyl (Dulcolax Supp) 10 mg DAILY PRN SD CONSTIPATION; Start 08/29/17 at 01:00 Diagnostic Test (Pha) (Accu-Chek) 1 ea 02 XX Last administered on 08/31/17 02 :00; Admin Dose 1 EA; Start 08/29/17 at 02:00 Miscellaneous Information 1 ea NOTE XX ; Start 08/29/17 at 01:00 Glucose (Glutose) 15 gm Q15M PRN PO DECREASED GLUCOSE; Start 08/29/17 at 01:00 Glucose (Glutose) 22.5 gm Q15M PRN PO DECREASED GLUCOSE; Start 08/29/17 at 01: 00 Dextrose (D50w Syringe) 25 ml Q15M PRN IV DECREASED GLUCOSE; Start 08/29/17 at 01:00 Dextrose (D50w Syringe) 50 ml Q15M PRN IV DECREASED GLUCOSE; Start 08/29/17 at 01:00 Glucagon (Glucagen) 1 mg Q15M PRN IM DECREASED GLUCOSE; Start 08/29/17 at 01: 00 Glucose (Glutose) 15 gm Q15M PRN BUCCAL DECREASED GLUCOSE; Start 08/29/17 at 01:00 FRAN TOLLIVER MD Aug 31, 2017 15:36
[2017-08-31] MEDS: ATORVASTATIN 10 MG TAB PO SCH (21:47)
[2017-09-01] VITALS (8 sets, daily range): BP systolic 121–143; BP diastolic 72–85; PULSE 76–87; RESP 15–20
[2017-09-01] MEDS: ACCU-CHEK XX SCH (02:23)
[2017-09-01] MEDS: FUROSEMIDE 40 MG INJ IV SCH ×2 (05:20→08:24)
[2017-09-01] MEDS: CLOPIDOGREL 75 MG TAB PO SCH (08:22)
[2017-09-01] MEDS: ACYCLOVIR 400 MG TAB PO SCH (08:22)
[2017-09-01] MEDS: ALLOPURINOL 100 MG TAB PO SCH (08:23)
[2017-09-01] MEDS: ENALAPRIL 10 MG TAB PO SCH (08:23)
[2017-09-01] MEDS: ASPIRIN (EC) 81 MG TAB PO SCH (08:23)
[2017-09-01] MEDS: GABAPENTIN 400 MG CAP PO SCH ×2 (08:23→11:47)
[2017-09-01] MEDS: LORATADINE 10 MG TAB PO SCH (08:23)
[2017-09-01] MEDS: INSULIN ASPART [NOVOLOG] 3 ML PEN SC SCH ×2 (08:32→11:51)
[2017-09-01] MEDS ORDERED: FURO40TA4 PO (09:45)
--- NOTE | 2017-09-01 09:47 | PDOCDIS ---
Discharge Instructions DIAGNOSIS Discharge Diagnosis Acute systolic congestive heart failure exacerbation CONDITION Patient Condition: Fair HOME CARE INSTRUCTIONS: Diet Instructions: Reduced SodiumSpecial Diet: Carb controlled FOLLOW UP/APPOINTMENTS Follow-up Plan It is very important that you take your medications as prescribed. You have been prescribed a medication called lasix (furosemide) which is a diuretic to help you avoid retaining fluid in your lungs caused by heart failure. It is very important to monitor your breathing and to measure your weight every day. If you are breathing worse or your weight goes up by more than a few pounds, you likely are retaining fluid and need to see your doctor. You must make an appointment to see your fleet coordinator within the next 1-2 weeks and have your blood work checked. FRAN TOLLIVER MD Sep 01, 2017 09:47
--- NOTE | 2017-09-01 09:51 | DS ---
Date/Time of Note Date/Time of Note DATE: 09/01/17 TIME: 09:47 Discharge Summary Admission/Discharge Info Admit Date/Time Aug 28, 2017 at 23:47 Discharge Date/Time Discharge Diagnosis Acute systolic congestive heart failure exacerbation Patient Condition: Fair Hospital Course 62 yo male wt chronic systolic CHF presenting [facility] acute systolic CHF exacerbation The patient was found to be in acute decompensated CHF. He was treated with IV lasix to euvolemia. He was continued on Coreg and MAUREEN inhibitor. His TTE confirmed reduced ejection fraction. He was discharged on 40 PO lasix daily and given close instruction to monitor his respiratory symptoms and weigh himself daily. He will follow up in clinic with his nematology teacher within the next 1-2 weeks. Home Meds Active Scripts Furosemide* (Furosemide*) 40 Mg Tablet, 40 MG PO DAILY for 30 Days, #30 TAB Prov:FRAN TOLLIVER MD 09/01/17 Clopidogrel Bisulfate (Clopidogrel) 75 Mg Tab, 75 MG PO DAILY for 28 Days, TAB Prov:VENKATA FRAUSTO MD 10/25/15 Reported Medications Ibuprofen* (Ibuprofen*) 600 Mg Tablet, 600 MG PO BID, TAB 08/28/17 Gabapentin* (Gabapentin*) 800 Mg Tablet, 800 MG PO TID, #90 TAB 08/28/17 Enalapril Maleate* (Enalapril Maleate*) 10 Mg Tablet, 10 MG PO DAILY, TAB 08/28/17 Carvedilol* (Carvedilol*) 3.125 Mg Tablet, 3.125 MG PO BID, #60 TAB 08/28/17 Aspirin* (Aspirin* EC) 81 Mg Tablet.dr, 81 MG PO DAILY, TAB 08/28/17 Acyclovir* (Acyclovir*) 400 Mg Tablet, 400 MG PO DAILY, TAB 08/28/17 Cyclobenzaprine Hcl* (Cyclobenzaprine Hcl*) 10 Mg Tablet, 10 MG PO BID Y for MUSCLE SPASMS, #60 TAB 04/25/17 Simvastatin* (Zocor*) 20 Mg Tablet, 20 MG PO QHS, #30 TAB 01/22/17 Loratadine* (Loratadine*) 10 Mg Tablet, 10 MG PO DAILY, #30 TAB 01/22/17 Nitroglycerin* (Nitrostat*) 0.4 Mg Tab.subl, 0.4 MG SL Q5MIN Y for CHEST PAIN, BOTTLE 10/23/15 Metformin Hcl* (Metformin Hcl*) 1,000 Mg Tablet, 1000 MG PO BID, #60 TAB 10/23/15 Glipizide* (Glipizide*) 5 Mg Tablet, 5 MG PO DAILY, TAB 10/23/15 Allopurinol* (Allopurinol*) 100 Mg Tablet, 100 MG PO DAILY, TAB 10/23/15 Discontinued Reported Medications Cyclobenzaprine Hcl* (Cyclobenzaprine Hcl*) 10 Mg Tablet, 10 MG PO TID, #90 TAB 08/28/17 Lisinopril* (Lisinopril*) 20 Mg Tablet, 20 MG PO DAILY, #30 TAB 04/25/17 Fluticasone Propionate* (Fluticasone Propionate* Nasal) 50 Mcg/[place] - 16 Gm [place].susp, 1 SPRAY NASAL BID, #1 BOTTLE TO EACH NOSTRIL 01/22/17 Omeprazole* (Omeprazole*) 20 Mg Capsule.dr, 20 MG PO DAILY, #30 CAP 01/22/17 Insulin Glargine* (Lantus*) 100 Unit/Ml Soln, 20 UNIT SC DAILY, #1 VIAL 01/22/17 Sertraline Hcl* (Sertraline Hcl*) 25 Mg Tablet, 25 MG PO DAILY, #30 TAB 10/23/15 Gabapentin* (Gabapentin*) 400 Mg Capsule, 800 MG PO TID, #180 CAP 10/23/15 Discontinued Scripts Furosemide* (Furosemide*) 20 Mg Tablet, 20 MG PO DAILY for 14 Days, #28 TAB Prov:CONSTANTINO WEST MD 04/29/17 Aspirin* (Aspirin*) 325 Mg Tablet, 325 MG PO DAILY for 30 Days, #30 TAB Prov:CONSTANTINO WEST MD 04/29/17 Metoprolol Tartrate* (Lopressor*) 25 Mg Tab, 25 MG PO BID for 30 Days, #60 TAB Prov:CONSTANTINO WEST MD 04/29/17 Follow-up Plan It is very important that you take your medications as prescribed. You have been prescribed a medication called lasix (furosemide) which is a diuretic to help you avoid retaining fluid in your lungs caused by heart failure. It is very important to monitor your breathing and to measure your weight every day. If you are breathing worse or your weight goes up by more than a few pounds, you likely are retaining fluid and need to see your doctor. You must make an appointment to see your nematology teacher within the next 1-2 weeks and have your blood work checked. Primary Care Provider June Gardner Pending Labs Laboratory Tests Test 08/31/17 12:10 08/31/17 12:24 08/31/17 12:36 08/31/17 17:52 Bedside Glucose 141mg/dL (70-220) 186mg/dL (70-220) White Blood Count 4.910^3/ul (4.8-10.8) Red Blood Count 5.0210^6/ul (4.70-6.10) Hemoglobin 14.5g/dl (14.0-18.0) Hematocrit 43.3% (42.0-52.0) Mean Corpuscular Volume 86.3fl (82.0-101.0) Mean Corpuscular Hemoglobin 28.9pg (29.0-33.0) Mean Corpuscular Hemoglobin Concent 33.5g/dl (32.0-37.0) Red Cell Distribution Width 13.5% (11.5-14.5) Platelet Count 77794^3/UL (140-415) Mean Platelet Volume 9.7fl (7.4-10.4) Neutrophils % 48.0% (39.0-77.0) Lymphocytes % 27.8% (15.0-51.0) Monocytes % 16.7% (0.0-11.0) Eosinophils % 5.9% (0.0-7.0) Basophils % 1.0% (0.0-2.0) Nucleated Red Blood Cells % 0.0/100WBC (0.0-0.0) Neutrophils # 2.410^3/ul (1.6-7.5) Lymphocytes # 1.410^3/ul (0.8-2.9) Monocytes # 0.810^3/ul (0.3-0.9) Eosinophils # 0.310^3/ul (0.0-0.5) Basophils # 0.110^3/ul (0.0-0.1) Nucleated Red Blood Cells # 0.010^3/ul (0.0-0.0) Sodium Level 136mmol/L (135-144) Potassium Level 4.2mmol/L (3.5-5.1) Chloride Level 97mmol/L (97-110) Carbon Dioxide Level 28mmol/L (21-31) Anion Gap 15 (8-16) Blood Urea Nitrogen 25mg/dl (7-20) Creatinine 1.27mg/dl (0.61-1.24) Glucose Level 147mg/dl (70-220) Calcium Level 9.8mg/dl (8.4-10.2) Magnesium Level 1.7mg/dl (1.7-2.5) Total Bilirubin 0.2mg/dl (0.2-1.3) Direct Bilirubin 0.00mg/dl (0.00-0.20) Indirect Bilirubin 0.2mg/dl (0-1.1) Aspartate Amino Transf (AST/SGOT) 24IU/L (15-46) Alanine Aminotransferase (ALT/SGPT) 35IU/L (13-69) Alkaline Phosphatase 79IU/L (42-121) Total Protein 7.3g/dl (6.1-8.1) Albumin 4.0g/dl (3.3-4.9) Globulin 3.40g/dl (1.3-3.2) Albumin/Globulin Ratio 1.17 Test 08/31/17 21:40 09/01/17 02:19 09/01/17 08:17 Bedside Glucose 195mg/dL (70-220) 194mg/dL (70-220) 179mg/dL (70-220) FRAN TOLLIVER MD Sep 01, 2017 09:51
== END 2017-09-01 14:00 | disposition home or self-care (01) | DRG 291 ==
LOC: E/R 18:01 → MS3 23:47 → TEL 08-30 23:15
PROVIDERS: ADMIT Family Medicine; ATTEND Family Medicine
DX: I13.0 Hypertensive heart and chronic kidney disease with heart failure and stage 1 through stage 4 chronic kidney disease, or unspecified chronic kidney disease (principal); I50.23 Acute on chronic systolic (congestive) heart failure; N17.9 Acute kidney failure, unspecified; E11.22 Type 2 diabetes mellitus with diabetic chronic kidney disease; I25.5 Ischemic cardiomyopathy; E78.5 Hyperlipidemia, unspecified; I25.2 Old myocardial infarction; M10.9 Gout, unspecified; N18.2 Chronic kidney disease, stage 2 (mild); Z95.5 Presence of coronary angioplasty implant and graft
CPT/HCPCS: 71010; 80048; 80053; 80061; 80076; 82550; 82553; 82962; 83036; 83735; 83880; 84132; 84443; 84484; 84560; 85025; 85610; 85730; 93005; 93306; 96374; J1815; J1940; J2270

== ENCOUNTER 2019-04-25 17:38 | Inpatient (IN) | payer OTHER ==
[~2019-04-25] VITALS: Ht 177.8 cm; Wt 88.0 kg
[~2019-04-25 17:38] MED LIST changes: +ACET325T45 PO; +ACYC400T2 PO; +ASPI-817 PO; -ASPI325T4 PO; +BISA10SU55 RC; +BUSP10TA2 PO; +CARV3.1260 PO; -CYCL-319 PO; +CYCL10TA7 PO; +DEXT38GE15 PO; +DOCU-144 PO; +ENAL10TA PO; +ENAL2.5T PO; -FLUT16SP17 NASAL; -FURO20TA3 PO; +FURO40TA4 PO; +GABA-528 PO; -GABA400C14 PO; +GLUC1KIT IJ; +IBUP-1542 PO; +IBUP-1982 PO; +LACT20SO2 PO; +LEVE250T5 PO; +LIDO700A45 TP; +LINA5TAB PO; -LISI20TA11 PO; +LORA0.5T PO; +MAGN400O19 PO; -METF1000 PO; +METF100010 PO; -METO-448 PO; +MULTI PO; +NOVO3I SC; -OMEP20CA16 PO; +PANT40TA4 PO; +PHEN100C PO; +POLY17PO28 PO; +SENN-120 PO; -SERT25TA83 PO; +SODI1TAB2 PO
[2019-04-26 06:51] VITALS: Ht 177.8 cm; Wt 88.0 kg
[2019-05-02 02:30] VITALS: BP 117/65; PULSE 70; RESP 17
== END 2019-05-02 04:53 | disposition short-term general hospital (02) | DRG 91 ==
LOC: VRC 22:50
PROVIDERS: ADMIT Physical Medicine & Rehabilitation; ATTEND Internal Medicine Nephrology
PROC: F07Z5ZZ Bed Mobility Treatment (ICD-10-PCS; principal; 2019-04-25)
PROC: F08Z2ZZ Grooming/Personal Hygiene Treatment (ICD-10-PCS; 2019-04-25)
PROC: F06Z6ZZ Communicative/Cognitive Integration Skills Treatment (ICD-10-PCS; 2019-04-25)
DX: R26.89 Other abnormalities of gait and mobility (principal); I50.23 Acute on chronic systolic (congestive) heart failure; E87.1 Hypo-osmolality and hyponatremia; R42 Dizziness and giddiness; E66.3 Overweight; I25.10 Atherosclerotic heart disease of native coronary artery without angina pectoris; E11.9 Type 2 diabetes mellitus without complications; R13.10 Dysphagia, unspecified; I11.0 Hypertensive heart disease with heart failure; E78.5 Hyperlipidemia, unspecified; R13.12 Dysphagia, oropharyngeal phase
CPT/HCPCS: 70450; 80048; 80053; 80185; 81003; 82962; 83880; 85025; 87081; 87086; 92507; 92523; 92610; 93005; 97110; 97112; 97163; 97166; 97530; 97535; 97542; J1815

== ENCOUNTER 2019-05-02 05:07 | Emergency (ER) | payer OTHER ==
[~2019-05-02] VITALS: Ht 188 cm; Wt 90.9 kg
[2019-05-02 05:08] VITALS: Ht 188 cm; Wt 90.9 kg
--- NOTE | 2019-05-02 06:09 | ERD ---
ER Documentation Chief Complaint Chief Complaint SEIZURE X TODAY (HX OF BRAIN TUMOR) HPI 63-year-old male with a history of meningioma resection 04/15/2019 with subsequent CVA, hypertension, diabetes and CHF with EF of 25% sent to the ED from the rehab unit for evaluation of possible seizure. This morning patient became stiff and nonresponsive for several seconds. Currently asymptomatic. No chest pain, palpitations or shortness of breath. Denies headache. No fevers or chills. ROS All systems reviewed and are negative except as per history of present illness. Medications Home Meds Reported Medications Sodium Chloride* (Sodium Chloride*) 1 Gm Tablet, 2 GM PO TID, TAB 05/02/19 Sennosides* (Senna Lax*) 8.6 Mg Tablet, 1 TAB PO QHS, TAB 05/02/19 Polyethylene Glycol* (Polyethylene Glycol*) 17 Gm Powd.pack, 17 GM PO DAILY, #30 PACKET 05/02/19 Phenytoin* Sodium Extended (Dilantin*) 100 Mg Capsule, 300 MG PO HS, CAP 05/02/19 Pantoprazole* (Pantoprazole*) 40 Mg Tablet.dr, 40 MG PO AC BREAKFAST, TAB 05/02/19 Multivitamins* (Theragran*) 1 Tab Tab, 1 TAB PO DAILY, TAB 05/02/19 Lidocaine (Lidocaine) 1 Each Adh..patch, 1 EACH TP DAILY 05/02/19 Levetiracetam* (Levetiracetam*) 250 Mg Tablet, 250 MG PO BID, TAB 05/02/19 Linagliptin (TRADJENTA) 5 Mg Tablet, 5 MG PO DAILY, TAB 05/02/19 Lorazepam* (Lorazepam*) 0.5 Mg Tablet, 0.5 MG PO BID PRN for ANXIETY, TAB 05/02/19 Magnesium Hydroxide* (Milk Of Magnesia*) 400 Mg/5 Ml Oral.susp, 30 ML PO BID, ML 05/02/19 Lactulose* (Lactulose*) 20 Gm/30 Ml Solution, 30 ML PO DAILY for CONSTIPATION, ML 05/02/19 Insulin Glargine* (Lantus*) 100 Unit/Ml Soln, 15 UNIT SC DAILY, #1 VIAL 05/02/19 Insulin Aspart* (Novolog Insulin Pen*) 100 Unit/Ml Soln, 0 SC .SLIDING SCALE AC, EA WITH MEALS AND BEDTIME 05/02/19 Ibuprofen* (Ibuprofen*) 200 Mg Capsule, 200 MG PO BID, CAP 05/02/19 Acetaminophen* (Acetaminophen*) 325 Mg Tablet, 650 MG PO Q4H PRN for PAIN AND OR ELEVATED TEMP, #30 TAB 05/02/19 Aspirin* (Aspirin* EC) 81 Mg Tablet.dr, 81 MG PO DAILY, TAB 05/02/19 Bisacodyl (Dulcolax) 10 Mg Supp.rect, 10 MG RC NEEDED, SUPP.RECT 05/02/19 Buspirone Hcl* (Buspirone Hcl*) 10 Mg Tab, 10 MG PO BID, TAB 05/02/19 Carvedilol* (Carvedilol*) 3.125 Mg Tablet, 3.125 MG PO BID, #60 TAB 05/02/19 Docusate Sodium* (Colace*) 100 Mg Capsule, 100 MG PO BID, #60 CAP 05/02/19 Enalapril Maleate* (Enalapril Maleate*) 2.5 Mg Tablet, 2.5 MG PO DAILY, TAB 05/02/19 Furosemide* (Furosemide*) 40 Mg Tablet, 40 MG PO DAILY, TAB 05/02/19 Dextrose (Glucose Gel) 38 Gm Gel..gram., 22.5 GM PO Q15 MIN PRN for NEEDED 05/02/19 Glucagon,Human Recombinant (Glucagon Emergency Kit) 1 Mg Kit, 1 MG IJ Q 15 MIN PRN for NEEDED, KIT 05/02/19 Discontinued Reported Medications Ibuprofen* (Ibuprofen*) 600 Mg Tablet, 600 MG PO BID, TAB 08/28/17 Gabapentin* (Gabapentin*) 800 Mg Tablet, 800 MG PO TID, #90 TAB 08/28/17 Enalapril Maleate* (Enalapril Maleate*) 10 Mg Tablet, 10 MG PO DAILY, TAB 08/28/17 Carvedilol* (Carvedilol*) 3.125 Mg Tablet, 3.125 MG PO BID, #60 TAB 08/28/17 Aspirin* (Aspirin* EC) 81 Mg Tablet.dr, 81 MG PO DAILY, TAB 08/28/17 Acyclovir* (Acyclovir*) 400 Mg Tablet, 400 MG PO DAILY, TAB 08/28/17 Cyclobenzaprine Hcl* (Cyclobenzaprine Hcl*) 10 Mg Tablet, 10 MG PO BID PRN for MUSCLE SPASMS, #60 TAB 04/25/17 Simvastatin* (Zocor*) 20 Mg Tablet, 20 MG PO QHS, #30 TAB 01/22/17 Loratadine* (Loratadine*) 10 Mg Tablet, 10 MG PO DAILY, #30 TAB 01/22/17 Nitroglycerin* (Nitrostat*) 0.4 Mg Tab.subl, 0.4 MG SL Q5MIN PRN for CHEST PAIN, BOTTLE 10/23/15 Metformin Hcl* (Metformin Hcl*) 1,000 Mg Tablet, 1000 MG PO BID, #60 TAB 10/23/15 Glipizide* (Glipizide*) 5 Mg Tablet, 5 MG PO DAILY, TAB 10/23/15 Allopurinol* (Allopurinol*) 100 Mg Tablet, 100 MG PO DAILY, TAB 10/23/15 Discontinued Scripts Furosemide* (Furosemide*) 40 Mg Tablet, 40 MG PO DAILY for 30 Days, #30 TAB Prov:FRAN TOLLIVER MD 09/01/17 Clopidogrel Bisulfate (Clopidogrel) 75 Mg Tab, 75 MG PO DAILY for 28 Days, TAB Prov:VENKATA FRAUSTO MD 10/25/15 Allergies Allergies: Coded Allergies: No Known Allergy (Unverified , 05/02/19) PMhx/Soc History of Surgery: Yes (craniectomy) Anesthesia Reaction: No (UNKNOWN) Hx Neurological Disorder: Yes (SEIZURE) Hx Respiratory Disorders: No Hx Cardiac Disorders: Yes (HTN, ENRESTO, CHF, HLD, AK) Hx Psychiatric Problems: No Hx Miscellaneous Medical Probl: Yes (Anemia, former meth user, CAD) Hx Alcohol Use: No Hx Substance Use: No Hx Tobacco Use: No Smoking Status: Never smoker FmHx No family history relevant to presenting complaint Physical Exam Vitals Vital Signs Date Temp Pulse Resp B/P (MAP) Pulse Ox O2 O2 Flow FiO2 Time Delivery Rate 05/02/19 98.9 79 14 112/72 100 Room Air 23:17 (85) 05/02/19 68 19 118/71 98 Room Air 22:30 (87) 05/02/19 64 19 112/71 96 Room Air 20:30 (85) 05/02/19 64 19 124/64 98 Room Air 18:30 (84) 05/02/19 98.3 65 19 121/73 97 Room Air 18:02 (89) 05/02/19 98.3 74 19 106/86 97 Room Air 17:00 (93) 05/02/19 98.3 57 19 116/73 97 Room Air 16:00 (87) 05/02/19 98.3 75 23 118/77 100 Room Air 14:41 (91) 05/02/19 98.3 67 25 131/74 100 Room Air 13:00 (93) 05/02/19 98.4 68 30 124/80 100 Room Air 11:30 (95) 05/02/19 98.4 82 20 136/76 100 Room Air 09:48 (96) Physical Exam Const: No acute distress Head: Atraumatic Eyes: Normal Conjunctiva ENT: Normal External Ears, Nose and Mouth. Neck: Full range of motion. No meningismus. Resp: Clear to auscultation bilaterally Cardio: Regular rate and rhythm, no murmurs Abd: Soft, non tender, non distended. Normal bowel sounds Skin: No petechiae or rashes Back: No midline or flank tenderness Ext: No cyanosis, or edema Neur: Awake and alert Psych: Normal Mood and Affect Result Diagram: 05/02/1938 05/02/19 0637 Results 24 hrs Laboratory Tests Test 05/02/19 06:32 05/02/19 06:37 05/02/19 19:09 Bedside Glucose 167 mg/dL 138 mg/dL White Blood Count 3.8 10^3/ul Red Blood Count 4.14 10^6/ul Hemoglobin 12.0 g/dl Hematocrit 36.1 % Mean Corpuscular Volume 87.2 fl Mean Corpuscular Hemoglobin 29.0 pg Mean Corpuscular 33.2 g/dl Hemoglobin Concent Red Cell Distribution Width 11.9 % Platelet Count 294 10^3/UL Mean Platelet Volume 9.3 fl Immature Granulocytes % 0.500 % Neutrophils % 52.2 % Lymphocytes % 29.9 % Monocytes % 12.3 % Eosinophils % 4.3 % Basophils % 0.8 % Nucleated Red Blood Cells % 0.0 /100WBC Immature Granulocytes # 0.020 10^3/ul Neutrophils # 2.0 10^3/ul Lymphocytes # 1.1 10^3/ul Monocytes # 0.5 10^3/ul Eosinophils # 0.2 10^3/ul Basophils # 0.0 10^3/ul Nucleated Red Blood Cells # 0.0 10^3/ul Sodium Level 134 mmol/L Potassium Level 4.1 mmol/L Chloride Level 96 mmol/L Carbon Dioxide Level 31 mmol/L Anion Gap 7 Blood Urea Nitrogen 16 mg/dl Creatinine 0.82 mg/dl Est Glomerular Filtrat Rate mL/min > 60 mL/min Glucose Level 168 mg/dl Calcium Level 9.5 mg/dl Total Bilirubin 0.3 mg/dl Direct Bilirubin 0.00 mg/dl Indirect Bilirubin 0.3 mg/dl Aspartate Amino Transf (AST/SGOT) 42 IU/L Alanine 61 IU/L Aminotransferase (ALT/SGPT) Alkaline Phosphatase 171 IU/L Troponin I 0.044 ng/ml Total Protein 7.2 g/dl Albumin 3.4 g/dl Globulin 3.80 g/dl Albumin/Globulin Ratio 0.89 Phenytoin (Dilantin) Level 15.4 ug/ml Current Medications Medications Dose Sig/Kishore Start Time Status Last (Trade) Ordered Route PRN Stop Time Admin Dose Reason Admin 10 mg ONCE ONCE 05/02/19 DC 05/02/19 Dexamethasone IV 16:00 16:40 (Decadron) 05/02/19 16:01 Procedures/MDM DOCUMENTS REVIEWED: ED nurse, prior ED, prior records EKG: Time: 06:43. Sinus rhythm. Ventricular rate 74. Normal AK and QRS. No acute ST elevation or depression. No ectopy. My Interpretation 3-lead rhythm strip interpretation: Sinus rhythm without ectopy. IMAGING: PROCEDURE: CT Brain without contrast. CLINICAL INDICATION: Altered level of consciousness. TECHNIQUE: A CT of the brain was performed utilizing axial imaging from the skull base through the vertex without IV contrast. Multiplanar reformatted images were made. Images were reviewed on a PACS workstation. The CTDIvol is 39.30 mGy and the DLP is 634.23 mGycm. DICOM images are available. One or more of the following dose reduction techniques were utilized: 1.) Automated exposure control 2.) Adjustment of the mA +/- kV according to patient's size 3.) Use of iterative reconstruction technique. COMPARISON: None FINDINGS: Recent left frontal craniotomy, with overlying soft tissue swelling in the scalp. There is an 8 mm relatively high attenuation presumed postsurgical subdural fluid collection and air deep to the bone flap. Postsurgical changes and edema are seen in the anterior to mid left temporal lobe. There is a small amount of postsurgical air in the lateral anterior left temporal lobe. There is about 3-4 mm [id number] midline shift. Mild effacement left lateral ventricle. The basilar cisterns remain patent and substantially symmetric. Mild effacement of the left frontal lobe sulci. Otherwise, the remain ventricles and sulci are normal in size and configuration. The density of the remain brain is otherwise normal, and the valentin white matter differentiation appears well-preserved. The visualized paranasal sinuses and the remaining osseous structures are grossly unremarkable. IMPRESSION: 1. Left frontal craniotomy, with 8 mm post surgical fluid and air collection deep to the bone flap. 2. There is about 3-4 mm [id number] midline shift. 3. Surgical changes with edema and air are seen in the left temporal lobe. 4. The basilar cisterns remain patent and substantially symmetric. These findings and impression were discussed with the patient's nurse Evita at the [facility] rehabilitation unit at the conclusion of this examination by the undersigned interpreting radiologist and 05/02/2019 at 0122 hours. RPTAT: UU Physician Ambrosio Date Time Electronically viewed and signed by Physician Ambrosio on 05/02/2019 01:28 RS/ PROCEDURE: MR Brain without contrast. CLINICAL INDICATION: Seizure. Status post craniotomy. Fluid collection/edema TECHNIQUE: Multiplanar multisequence MRI of the brain without contrast was obtained. COMPARISON: Head CT 05/02/2019. FINDINGS: There are postsurgical changes of recent left frontal temporal craniotomy. There is a resection cavity involving the left anterior temporal pole. There is a moderate size area of cytotoxic and vasogenic edema within the left temporal lobe involving the left uncus, hippocampus , left insular cortex and subinsular region. Small amount of intraparenchymal hemorrhage is also seen in the left anterior pole. There is effacement of the left frontal and temporal cortical sulci with partial effacement of the left lateral ventricle with 3 mm rightward midline shift. Small amount of subdural hemorrhage is seen beneath the craniotomy site. Scalp swelling and small fluid collection is identified overlying the left frontal temporal craniotomy. The signal intensity is normal in the remainder of the brain parenchyma, brainstem and cerebellum. Normal flow voids are visible in the proximal intracranial arteries and dural sinuses, i ndicating patency. The visualized paranasal sinuses are grossly clear. IMPRESSION: 1. Status post recent left frontotemporal craniotomy with a small resection cavity involving the left anterior temporal pole. Moderate size vasogenic edema within the left temporal lobe involving the left uncus, hippocampus, left insular cortex and subinsular region. Scattered smaller areas of cytotoxic edema more evident in the posterolateral aspect of the left temporal pole concerning for recent infarct. Small amount of intraparenchymal hemorrhage is identified left anterior temporal pole. Small subdural fluid collection is seen underneath the craniotomy site. Cortical sulcal effacement in the left frontal temporal lobe with partial effacement of the left lateral ventricle and 3 mm rightward midline shift. RPTAT: BB .Sasha Jimenez MD, MD Date Time Electronically viewed and signed by .Sasha Jimenez MD, MD on 05/02/2019 15:17 .O/ Observation Note: Time: 8 hours Family Hx: No Hypertension Evaluation: Multiple exams showed no further seizures. Sinus rhythm without ectopy. MRI findings as above will require neurosurgery follow-up for which patient will be transferred to [facility]. MEDICAL DECISION MAKIN-year-old male with a history of meningioma resection 04/15/2019 with subsequent CVA, hypertension, diabetes and CHF with EF of 25% sent to the ED from the rehab unit for evaluation of possible seizure. CT and MRI findings as above. Dilantin level is therapeutic. No fevers or signs of an occult infectious process. Dr. Guevara discussed case with neurosurgery and Decadron 10 mg IV given as per recommendation. It is unclear whether the patient actually had a seizure. Is observed in the ED for over 8 hours. Remains in sinus rhythm without ectopy. He is alert and mental status is unchanged. Transfer to [facility], Dr. Frausto excepting. CALLS/CONSULTS: Time: 08:33, Dr. Guevara. Request MRI CALLS/CONSULTS: Time: 15:30, Dr. Guevara discussed the case with neurosurgery at [place]. Recommends Decadron 10 mg IV and transfer. Care transferred to Dr Guevara who will arrange for transfer. Departure Diagnosis: Primary Impression: H/O meningioma of the brain Additional Impressions: S/P craniotomy Vasogenic brain edema Seizure disorder Condition: Serious BAYLEE VILLAR MD May 02, 2019 06:09
--- NOTE | 2019-05-02 14:58 | QN ---
Documentation Comment .63 y/o with HX dm, CHF , Hyponatremia S/p meningioma removal 04/15/2019 with consecutive stroke left frontal area and right side shift of the brain in [facility]. Behavioral disturbance admiited to Rehab unit . Patient was seen by multiple consultants in the a.m. yesterday Currently around 2300 the patient was unresponsive CPR was initiated, pt was seen by rapid response team after that the pulses came back but pt remained unresponsive per notes . Patient might have had a seizure as per the records CT of the head was done shows some midline shift and some fluid collection Case was discussed with Dr. Clark who had seen this patient at [facility] and according to him the CT of the head at the [facility] was the same Patient was being operated by Dr. Umaña neurosurgeon at [place] Patient was seen and examined this a.m. does not have any seizure vital signs are stable, pt is awake and alert Case was discussed with Dr. Clark again, plan is to get MRI and then discussed with Dr. Hobson Pt will likely be transferred to [facility] today for continuation of care and for to be seen by YAJAIRA Benjamin MD May 02, 2019 14:58
[2019-05-02] MEDS ORDERED: DEXAMETHASONE 10 MG/ML 1 ML INJ IV ONE (16:00)
--- NOTE | 2019-05-02 16:05 | QN ---
Documentation Comment Case was discussed about MRI results with Dr Umaña, Dr Goldstein and Dr Clark Plan is iv steroids and transfer to [place] to Telemetry for continuation of care YAJAIRA MCKINNEY MD May 02, 2019 16:05
[2019-05-02 23:17] VITALS: BP 112/72; PULSE 79; RESP 14
== END 2019-05-02 23:27 | disposition short-term general hospital (02) ==
LOC: E/R 05:07
DX: G93.6 Cerebral edema (principal); I11.0 Hypertensive heart disease with heart failure; I50.9 Heart failure, unspecified; E11.9 Type 2 diabetes mellitus without complications; I25.2 Old myocardial infarction; I25.10 Atherosclerotic heart disease of native coronary artery without angina pectoris; G40.909 Epilepsy, unspecified, not intractable, without status epilepticus; Z86.73 Personal history of transient ischemic attack (TIA), and cerebral infarction without residual deficits; Z79.4 Long term (current) use of insulin; Z79.82 Long term (current) use of aspirin; Z86.011 Personal history of benign neoplasm of the brain; Z98.890 Other specified postprocedural states
CPT/HCPCS: 36415; 70551; 71045; 80053; 80185; 82962; 84484; 85025; 93005; 96374; J1100; Z7502